=== PATIENT | male | born 1935 | race Caucasian/White ===

== ENCOUNTER 2020-02-26 06:03 | Observation (INO) ==
--- NOTE | 2020-02-10 16:01 | PAT Medication Instructions ---
Medication Instructions Date of Service February 10, 2020 Home Medications cholecalciferol (vitamin D3) [Vitamin D3] 50 mcg PO QAM tramadol 100 mg PO TID vit C,J-Wz-rlxii-lutein-zeaxan [PreserVision AREDS-2] 1 tab PO BID STOP taking 2 weeks before surgery vit C,P-Jg-hmybp-lutein-zeaxan [PreserVision AREDS-2] 1 tab PO BID DO NOT take the morning of surgery cholecalciferol (vitamin D3) [Vitamin D3] 50 mcg PO QAM Take morning of surgery With a small sip of water, OTHERWISE NOTHING TO EAT OR DRINK AFTER MIDNIGHT: tramadol 100 mg PO TID (okay to take up to 4 hours prior to surgery if needed) Take evening before surgery tramadol 100 mg PO TID Other Notes If you have any questions please call us at [phone] or [phone] or [phone] or [phone]
--- NOTE | 2020-02-13 13:33 | Anesthesiology Consultation ---
Date of Service February 13, 2020 Assessment & Plan (1) Encounter for pre-operative examination: Per assessment on 02/10: Travel screen negative. No known COVID-19 positive contacts or current COVID-19 related symptoms. Surgeon arranging preop COVID testing. Awaiting results. Chart Review Chart Review: Acceptable Risk for Surgery (pending surgeon-ordered PCP clearance) and Patient seen in Pre Admission Testing Teaching & Discussion Pre-Anesthesia Teaching/Discussion Notes: Instructed NPO after midnight before surgery,except medications with 15 cc of water. Medication instructions provided according to the PAT guidelines. History Surgery Operation Date: 02/26/20 12:20 Proposed Procedures p Left Total Knee Arthroplasty - Jamaal Leonard MD Height/Weight Height: 5 ft 10 in Weight: 88.3 kg Allergies Allergy/AdvReac Type Severity Reaction Status Date / Time naproxen [From Naprosyn] Allergy Severe Anaphylaxis Verified 02/11/20 13:19 diphenhydramine AdvReac Intermediate Urinary Verified 02/11/20 13:19 [From Benadryl] retention Medications Home Medications Medication Instructions Recorded Confirmed Last Taken PreserVision AREDS-2 1 tab PO BID 01/29/20 02/11/20 02/11/20 06:00 cholecalciferol (vitamin D3) 50 mcg PO QAM 01/29/20 02/11/20 02/11/20 06:00 [Vitamin D3] tramadol 100 mg PO TID 01/29/20 02/11/20 02/11/20 11:00 Past Medical History Medical History Lumbar herniated disc Macular degeneration Osteoarthritis Spinal stenosis Exercise / Class Metabolic Activity II 4-5 Yardwork/Stairs/Walk up hill Past Family History Family History Other No significant family history Past Surgical History Surgical History History of cholecystectomy History of colonoscopy History of herniorrhaphy LEFT INGUINAL History of tonsillectomy History of total knee replacement RT Past Anesthesia History No Hx of Anesthesia Complications and No Family Hx of Anesthesia Complications History of PONV No Hx of PONV and No Hx of Motion Sickness Social History Smoking Status: Never smoker Do You Dip or Chew Tobacco: No Hx Alcohol Use: Yes Alcohol type: beer and wine alcohol intake frequency: holidays/special occasions only substance use type: does not use Review of Systems Patient denies chest pain, shortness of breath, dyspnea on exertion, fever, chills, cough, wheezing, palpitations. Physical Exam Vital Signs VITALS BP 130/79 P 72 TEMP 98.4 SP02 97%RA RESP 16 PHYSICAL Full neck and c-spine range of motion. Full TMJ range of motion. TMD 3 finger breaths Mallampati Score 3 Dentition: intact Lungs: clear throughout to auscultation Cardiac: regular rate and rhythm, no murmurs noted Spine: normal Carotid arteries: negative bruit Extremities: no edema Testing Laboratory Results 02/13/20 13:50 02/13/20 13:50 PT 11.0 Seconds (9.0-12.0) 02/13/20 13:50 INR 1.0 (0.9-1.1) 02/13/20 13:50 Hemoglobin A1c 5.3 % (4.5-5.6) 02/13/20 13:50 Urine Color Yellow 02/13/20 Unknown Urine Appearance Clear (Clear) 02/13/20 Unknown Urine pH 5.0 (4.5-7.5) 02/13/20 Unknown Ur Specific [place] 1.028 (1.000-1.030) 02/13/20 Unknown Urine Protein Negative (Negative) 02/13/20 Unknown Urine Glucose (UA) Negative (Negative) 02/13/20 Unknown Urine Ketones Trace (Negative) H 02/13/20 Unknown Urine Nitrite Negative (Negative) 02/13/20 Unknown Ur Leukocyte Esterase Negative (Negative) 02/13/20 Unknown Blood Type A Positive 02/13/20 13:50 Antibody Screen NEGATIVE 02/13/20 13:50 02/13/20 Unknown Urine Culture - Final Urine,Clean Catch Pseudomonas aeruginosa Surgeon's office made aware of abnormal UA* Electrocardiogram Date: 02/13/20 Findings: + NSR @ (34)
--- NOTE | 2020-02-13 14:15 | Electrocardiogram Report ---
Test Reason : Blood Pressure : / mmHG Vent. Rate : 067 BPM Atrial Rate : 067 BPM P-R Int : 152 ms QRS Dur : 088 ms QT Int : 390 ms P-R-T Axes : 045 057 048 degrees QTc Int : 412 ms Normal sinus rhythm Normal ECG No previous ECGs available Confirmed by Juan Francisco Mcneill ([id number]) on 02/13/2020 2:15:32 PM Referred By: Jamaal Leonard Confirmed By:Juan Francisco Mcneill
[2020-02-13 14:33] LABS: Appearance Urine Clear (Clear); Bilirubin Urine Negative (Negative); Blood Urine Negative (Negative); Color Urine Yellow; Glucose Urine UA Negative (Negative); Ketones Urine Trace (Negative); Leukocyte Esterase Urine Negative (Negative); Nitrite Urine Negative (Negative); Protein Urine Negative (Negative); Specific Gravity Urine 1.028 (1.000-1.030); Urobilinogen Urine Negative (Negative)
[2020-02-13 14:36] LABS: BUN Creatinine Ratio 24.8 (10-20); Calcium 8.3 mg/dl (8.5-10.1); Creatinine Clr Calc Pharmacy 63.4 ml/min; Est GFR (African American) 82.7; Est GFR (Non-African American) 71.4; Potassium 3.9 mmol/L (3.5-5.1)
[2020-02-13 14:41] LABS: Basophils # (auto) 0.04 K/uL (0-0.2); Basophils % (auto) 0.5 %; Eosinophils # (auto) 0.06 K/uL (0-0.5); Eosinophils % (auto) 0.7 %; Hematocrit (blood only) 43.4 % (42-52); Hemoglobin 14.3 g/dL (14.0-18.0); Immature Granulocytes # (auto) 0.02 K/uL (0.00-0.02); Immature Granulocytes % (auto) 0.2 %; Lymphocytes # (auto) 1.43 K/uL (1.2-3.4); Lymphocytes % (auto) 17.8 %; Mean Corpuscular Hemoglobin 31.8 pg (25-34); Mean Corpuscular Hgb Conc 32.9 g/dL (32-36); Mean Corpuscular Volume 96.7 fL (80-100); Mean Platelet Volume 10.8 fL (7.4-10.4); Monocytes # (auto) 0.56 K/uL (0.11-0.59); Neutrophils # (auto) 5.94 K/uL (1.4-6.5); Neutrophils % (auto) 73.8 %; Platelet Count 269 K/uL (130-400); RDW Coefficient of Variation 12.4 % (11.5-14.5); RDW Standard Deviation 43.5 fL (36.4-46.3); Red Blood Count 4.49 M/uL (4.7-6.1); White Blood Count 8.05 K/uL (4.8-10.8)
--- NOTE | 2020-02-13 16:46 | History & Physical Report ---
Date of Service February 13, 2020 Assessment & Plan (1) Osteoarthritis of left knee: PRE-OP Diagnosis: Left knee osteoarthritis Planned Procedure: Left total knee arthroplasty Plan: Patient is scheduled to undergo this procedure with Dr. Jamaal Leonard the [facility] on February 26, 2020. Risks and complications of the procedure such as: Infection, bleeding, pain, scarring, nerve blood vessel damage, weakness, wound problems, stiffness, incomplete relief of symptoms, hardware failure, hardware loosening, wear, fracture, tendon or ligament injury, blood clots, embolism, heart attack, stroke and were explained to the patient has visit today by Dr. Leonard. Informed consent form the procedure was obtained. Patient also understands risks of proceeding with surgical intervention during the COVID-19 pandemic. Currently he is asymptomatic and understands he will be tested prior to surgery. Patient was provided with the order for the Covid test and advised to have it done at least 7 days prior to his procedure at the laboratory upstairs between 8 AM and noon. Patient had preanesthesia clearance appointment at the hospital earlier today, and during that appointment he obtained an EKG, CBC with differential, complete metabolic panel, PT/INR, urinalysis, urine culture, nasal culture for MRSA, hemoglobin A1c and a blood type and screen. Patient states that he has appointment with his primary care provider Dr. Grewal next week. Patient states that he has a walker he will bring with him on the day of the procedure. During today's visit we discussed discharge planning, we reviewed the total knee arthroplasty packet, patient states he will most likely have in-home therapy with home health. We also discussed the use of antibiotics for dental procedures following joint replacement surgery. Patient states he already understands this because he has right knee replaced in the past. I also provided him with information about lectures offered by [facility] via [employer] in regards to joint placement surgery. I provided the patient with paperwork to obtain a handicap placard for his vehicle, however he does not know if he will obtain it because he states that him and his have not been traveling much lately. Patient is scheduled for 2-week postoperative follow-up visit with myself on March 12 at 2:30 in the afternoon. Advised him that he will be discharged from the hospital most likely day 1 postoperatively with prescriptions for an opioid analgesic. Due to his anaphylactic-like reaction to naproxen will not provide a prescription for an anti-inflammatory agents. Patient states he will use Anacin for postoperative pain control and will supplement with extra strength Tylenol. Advised him that he will be on a baby aspirin twice daily for 30 days postoperatively for blood clot prevention and will also need to wear NEHA stockings for 2 weeks postoperatively. Patient and his verbalized understanding of all information provided during today's visit. They thanked us for the care that they have received. If they have questions or concerns that should arise prior to the surgery date, they will contact clinic. History of Present Illness Chief Complaint: Left knee osteoarthritis Primary Care Provider: Dave Grewal MD History of Present Illness (including history relevant to procedure): This 84-year-old male presents the clinic today for his preoperative history and physical. Patient has a longstanding history of left knee pain for harshil roximately the past 5. He states that over the past several months the pain is increased and caused him to use an ambulatory aid to walk. He said he used to be able to walk 3-4 times a week for at least a mile without any problems. Since August, however, he has not been able to do this. Anytime he puts weight down on the leg, it hurts. It is better when he rests it. Patient currently resides at [facility] with his , and recently moved there 1 month ago from the [facility]. Past Medical History: Problems: Osteoarthritis of left knee Pre-op exam Left sacral radiculopathy BPH Procedure History Procedure Procedure Date Comments Right total knee arthroplasty Cholecystectomy Left inguinal hernia repair Tonsillectomy Allergies and Sensitivities: Naprosyn(Anaphylaxis) Benadryl(Urinary retention) Family history: Noncontributory Social history: Patient states that he consumes approximately 3 alcoholic beverages per year. He denies tobacco or illicit drug use Current Home Meds: (Last Updated 02/12 14:23) cholecalciferol traMADol Weights: Last Updated 02/13/20 14:23 Initial Wt: 02/12 88.7 kg 195 lb Allergies Allergy/AdvReac Type Severity Reaction Status Date / Time naproxen [From Naprosyn] Allergy Severe Anaphylaxis Verified 02/11/20 13:19 diphenhydramine AdvReac Intermediate Urinary Verified 02/11/20 13:19 [From Benadryl] retention Home Medications Home Medications Medication Instructions Recorded Confirmed Type PreserVision AREDS-2 1 tab PO BID 01/29/20 02/11/20 History cholecalciferol (vitamin D3) 50 mcg PO QAM 01/29/20 02/11/20 History [Vitamin D3] tramadol 100 mg PO TID 01/29/20 02/11/20 History Past Med/Surg History Medical History Lumbar herniated disc Macular degeneration Osteoarthritis Spinal stenosis Surgical History History of cholecystectomy History of colonoscopy History of herniorrhaphy LEFT INGUINAL History of tonsillectomy History of total knee replacement RT Family History Other No significant family history Social History Smoking Status: Never smoker Second Hand Exposure: Yes ( A CHILD); Do You Dip or Chew Tobacco: No; Tobacco Cessation Education Requested by Patient: No Hx Alcohol Use: Yes Alcohol type: beer and wine Preferred Language: Hungarian Cook Candy Required: No Beliefs That Will Affect Care: None Current Living Situation: Spouse Current Living Situation Comment: [facility] Feels Safe at Home: Yes Safety Concerns: Feels Safe At This Time Assistive Devices: Cane and Glasses Review of Systems All systems reviewed & are unremarkable except as noted in Subjective Physical Exam Physical Exam: Physical Exam: (relevant to the procedure, including heart and lung evaluation) General: Alert and oriented x3 with proper grooming and hygiene Eyes: Pupils are equal and reactive to light with accommodation. Extraocular meds are intact Throat: Deferred due to COVID-19 precautions Cardiac: Regular rate and rhythm no murmurs or gallops appreciated Lungs: Clear auscultation throughout with no wheezing, rales or rhonchi Abdomen: Mildly obese, nondistended, nontender with normoactive bowel sounds Extremities: Left knee exam reveals the patient to be tender to palpation along the medial joint line. No lateral joint line tenderness. Mild peripatellar tenderness. Range of motion is from 0 to 120 degrees. Distally neurovascularly intact. Neuro: Cranial nerves II through XII are intact no motor or sensory deficit Skin: Normal appearance no open skin areas or discharge Results & Data ([facility]) Laboratory Results 02/13/20 02/13/20 02/13/20 Range/Units Unknown Unknown 13:50 WBC (4.8-10.8) K/uL RBC (4.7-6.1) M/uL Hgb (14.0-18.0) g/dL Hct (42-52) % MCV (80-100) fL MCH (25-34) pg MCHC (32-36) g/dL RDW Std Deviation (36.4-46.3) fL RDW Coeff of Shaq (11.5-14.5) % Plt Count (130-400) K/uL MPV (7.4-10.4) fL Immature Gran % (Auto) % Neut % (Auto) % Lymph % (Auto) % [place] % (Auto) % Eos % (Auto) % Baso % (Auto) % Neut # (Auto) (1.4-6.5) K/uL Lymph # (Auto) (1.2-3.4) K/uL Baldwin # (Auto) (0.11-0.59) K/uL Eos # (Auto) (0-0.5) K/uL Baso # (Auto) (0-0.2) K/uL Immature Gran # (Auto) (0.00-0.02) K/uL PT (9.0-12.0) Seconds INR (0.9-1.1) Sodium (136-145) mmol/L Potassium (3.5-5.1) mmol/L Chloride (98-107) mmol/L Carbon Dioxide (21-32) mmol/L Anion Gap (3-11) BUN (7-18) mg/dl Creatinine (0.6-1.4) mg/dl Est Cr Clr Drug Dosing ml/min Est GFR ( Amer) Est GFR (Non-Af Amer) BUN/Creatinine Ratio (10-20) Glucose (70-99) mg/dl Estimat Average Glucose Pending Hemoglobin A1c Pending Calcium (8.5-10.1) mg/dl Urine Color Yellow Urine Appearance Clear (Clear) Urine pH 5.0 (4.5-7.5) Ur Specific [place] 1.028 (1.000-1.030) Urine Protein Negative (Negative) Urine Glucose (UA) Negative (Negative) Urine Ketones Trace H (Negative) Urine Blood Negative (Negative) Urine Nitrite Negative (Negative) Urine Bilirubin Negative (Negative) Urine Urobilinogen Negative (Negative) Ur Leukocyte Esterase Negative (Negative) Nasal Screen MRSA (PCR) Negative (Negative) Blood Type Antibody Screen 02/13/20 02/13/20 02/13/20 Range/Units 13:50 13:50 13:50 WBC 8.05 (4.8-10.8) K/uL RBC 4.49 L (4.7-6.1) M/uL Hgb 14.3 (14.0-18.0) g/dL Hct 43.4 (42-52) % MCV 96.7 (80-100) fL MCH 31.8 (25-34) pg MCHC 32.9 (32-36) g/dL RDW Std Deviation 43.5 (36.4-46.3) fL RDW Coeff of Shaq 12.4 (11.5-14.5) % Plt Count 269 (130-400) K/uL MPV 10.8 H (7.4-10.4) fL Immature Gran % (Auto) 0.2 % Neut % (Auto) 73.8 % Lymph % (Auto) 17.8 % Baldwin % (Auto) 7.0 % Eos % (Auto) 0.7 % Baso % (Auto) 0.5 % Neut # (Auto) 5.94 (1.4-6.5) K/uL Lymph # (Auto) 1.43 (1.2-3.4) K/uL Baldwin # (Auto) 0.56 (0.11-0.59) K/uL Eos # (Auto) 0.06 (0-0.5) K/uL Baso # (Auto) 0.04 (0-0.2) K/uL Immature Gran # (Auto) 0.02 (0.00-0.02) K/uL PT 11.0 (9.0-12.0) Seconds INR 1.0 (0.9-1.1) Sodium 142 (136-145) mmol/L Potassium 3.9 (3.5-5.1) mmol/L Chloride 110 H (98-107) mmol/L Carbon Dioxide 27 (21-32) mmol/L Anion Gap 5.0 (3-11) BUN 24 H (7-18) mg/dl Creatinine 0.97 (0.6-1.4) mg/dl Est Cr Clr Drug Dosing 63.4 ml/min Est GFR ( Amer) 82.7 Est GFR (Non-Af Amer) 71.4 BUN/Creatinine Ratio 24.8 H (10-20) Glucose 132 H (70-99) mg/dl Estimat Average Glucose Hemoglobin A1c Calcium 8.3 L (8.5-10.1) mg/dl Urine Color Urine Appearance (Clear) Urine pH (4.5-7.5) Ur Specific [place] (1.000-1.030) Urine Protein (Negative) Urine Glucose (UA) (Negative) Urine Ketones (Negative) Urine Blood (Negative) Urine Nitrite (Negative) Urine Bilirubin (Negative) Urine Urobilinogen (Negative) Ur Leukocyte Esterase (Negative) Nasal Screen MRSA (PCR) (Negative) Blood Type Antibody Screen 02/13/20 Range/Units 13:50 WBC (4.8-10.8) K/uL RBC (4.7-6.1) M/uL Hgb (14.0-18.0) g/dL Hct (42-52) % MCV (80-100) fL MCH (25-34) pg MCHC (32-36) g/dL RDW Std Deviation (36.4-46.3) fL RDW Coeff of Shaq (11.5-14.5) % Plt Count (130-400) K/uL MPV (7.4-10.4) fL Immature Gran % (Auto) % Neut % (Auto) % Lymph % (Auto) % Baldwin % (Auto) % Eos % (Auto) % Baso % (Auto) % Neut # (Auto) (1.4-6.5) K/uL Lymph # (Auto) (1.2-3.4) K/uL [place] # (Auto) (0.11-0.59) K/uL Eos # (Auto) (0-0.5) K/uL Baso # (Auto) (0-0.2) K/uL Immature Gran # (Auto) (0.00-0.02) K/uL PT (9.0-12.0) Seconds INR (0.9-1.1) Sodium (136-145) mmol/L Potassium (3.5-5.1) mmol/L Chloride (98-107) mmol/L Carbon Dioxide (21-32) mmol/L Anion Gap (3-11) BUN (7-18) mg/dl Creatinine (0.6-1.4) mg/dl Est Cr Clr Drug Dosing ml/min Est GFR ( Amer) Est GFR (Non-Af Amer) BUN/Creatinine Ratio (10-20) Glucose (70-99) mg/dl Estimat Average Glucose Hemoglobin A1c Calcium (8.5-10.1) mg/dl Urine Color Urine Appearance (Clear) Urine pH (4.5-7.5) Ur Specific [place] (1.000-1.030) Urine Protein (Negative) Urine Glucose (UA) (Negative) Urine Ketones (Negative) Urine Blood (Negative) Urine Nitrite (Negative) Urine Bilirubin (Negative) Urine Urobilinogen (Negative) Ur Leukocyte Esterase (Negative) Nasal Screen MRSA (PCR) (Negative) Blood Type Pending Antibody Screen Pending Diagnostic Findings Studies relevant to procedure: X-rays done e include a standing long leg alignment film as well as three-views of the left knee. These demonstrate the patient to be in varus alignment on the left and valgus alignment on the right where he has had a total knee arthroplasty done. He has [id number] arthritis on the left medial joint space. No fractures are visualized.
[2020-02-14 06:39] LABS: Estimated Average Glucose 105 mg/dl; Hemoglobin A1C 5.3 % (4.5-5.6)
[~2020-02-26 06:03] MED LIST: ACETAMINOPHEN 500 MG TAB PO SCH; CeleBREX 200 MG CAP PO SCH; FAMOTIDINE 20 MG TAB PO SCH; LR 60ML/HR IV SCH; ROPIVACAINE 0.5% HCL/PF 150 MG, BUPIVACAINE 0.5% MPF 30 ML, EPINEPHrine 0.15 MG, dexAME... INFIL SCH; TRANEXAMIC ACID 1,000 MG **IV Intra-op IV SCH; TRANEXAMIC ACID 1,000 MG **IV Pre-op IV SCH; ceFAZolin 2000MG 2,000 MG/15 ML SYR IV SCH; dexAMETHasone 4 MG TAB PO SCH; traMADol HCL 50 MG TABLET PO SCH
[2020-02-26] MEDS ORDERED: BUPIVACAINE 0.5 % 5 MG/1 ML PF 10ML VIAL ONE (06:28)
[2020-02-26] MEDS: LR 500ML BOLUS, THEN 15ML/HR IV SCH ×2 (06:40)
[2020-02-26] MEDS ORDERED: fentaNYL citrate 100 MCG/2 ML VIAL ONE (07:33)
[2020-02-26] MEDS ORDERED: MIDAZOLAM HCL 1 MG/ML 2ML VIAL ONE (07:33)
[2020-02-26] MEDS ORDERED: LIDOCAINE HCL 2% 2 ML VIAL/AMP(20MG/ML) INFIL ONE (07:33)
[2020-02-26] MEDS ORDERED: PROPOFOL IV EMULSION 10 MG/ML 20 ML VIAL IV ONE ×6 (07:33→07:34)
[2020-02-26] MEDS ORDERED: ONDANSETRON INJ 2 MG/ML 2 ML VIAL IV PRN ×2 (07:44→12:30)
[2020-02-26] MEDS ORDERED: ATROPINE SULFATE 0.1 MG/ML 10ML SYR IV PRN (07:44)
[2020-02-26] MEDS ORDERED: ePHEDrine sulfate 50 MG/ML AMP IV PRN (07:44)
[2020-02-26] MEDS ORDERED: fentaNYL citrate 100 MCG/2 ML VIAL IV PRN (07:44)
[2020-02-26] MEDS ORDERED: ORTHO JOINT ANESTHETIC ONE (07:56)
--- NOTE | 2020-02-26 08:08 | History & Physical Bridge Note ---
Date of Service February 26, 2020 History & Physical Bridge Note I have examined the patient, reviewed the History & Physical and in the interval since the performance of the History & Physical I have noted the following changes of clinical significance: no changes noted
--- NOTE | 2020-02-26 10:15 | Operative Report ---
Post Operative Report Pre & Post Diagnosis Operation Date: 02/26/20 08:15 Pre-Op Diagnosis: LEFT KNEE ARTHRITIS M17.12 Post-Op Diagnosis: LEFT KNEE ARTHRITIS M17.12 I identified the patient and participated in the time-out.: Yes Procedure Operation Date: 02/26/20 08:15 Actual Procedures p Left Total Knee Arthroplasty(Left) - Jamaal Leonard MD Surgeon Jamaal Leonard MD Sap Pp Consultant BISI Rosen PA-C Estimated Blood Loss 100 Findings Consistent with Post-Op Diagnosis Specimens Bone and soft tissue, left knee Anesthesia Type Spinal MAC Complications none Disposition Accompanied Patient To Recovery: No Disposition: Recovery Room Indications 84-year-old male with left knee pain refractory to conservative management. X- rays demonstrate end-stage osteoarthritis. I had a long discussion with him ab out the risks and benefits of surgery alternatives to surgery and expected outcomes. After reviewing all these elected to proceed with surgery. All questions were answered. Informed consent was signed. Description of Procedure Patient was identified in the preoperative holding area where the surgical site, left knee, was marked. Patient was brought back to the operating room, placed on the operating room table, and IV sedation was administered. All bony prominences were padded. Perioperative antibiotics and tranexamic acid were administered. Exam under anesthesia was performed. Range of motion was 8 - 135 degrees. Stable to varus and valgus at 0 and 30 degrees. The surgical site was prepped and draped in the normal sterile fashion. Prior to incision a multidisciplinary timeout was called. All in the room were in agreement. We began by exsanguinating the limb with an Esmarch bandage. Tourniquet was inflated to 250 mmHg. A 14 cm long incision was made over the anterior aspect of the knee. I dissected through the subcutaneous tissues to the level of the fascia. Full-thickness flaps are raised above the fascia. A median parapatellar arthrotomy was made. Half the fat pad was excised. A medial release was performed with Bovie electrocautery on the proximal tibia. Synovitis in the suprapatellar pouch was removed. The patella was then everted and held with 2 towel clips. The thickness of the patella was measured at 26 mm. Patellar resection was performed. Caliper showed the patella thickness now to be 16 mm. A size 38 trial was placed and had a great fit. The 3 drill holes were placed then the trial button was placed. The patellar thickness was now 26 mm which I was very happy with. The patellar trial was then removed, the patella was everted and the knee was flexed up. Osteophytes were removed from the femoral condyles and intercondylar notch. The ACL and PCL were excised. Intramedullary drill guide was drilled into the femur. Distal femoral cutting guide was placed set at 5 degrees of valgus to resect 11 mm off the distal femur. Distal femoral resection was made without difficulty. The tibia was then exposed. The lateral meniscus was sharply excised. The tibial cutting jig was positioned to resect 10 mm off the less involved compartment. The jig was then pinned in position and the tibial cut was made. We then brought the knee into full extension. Lamina spreaders were placed. The medial meniscus was excised. The extension block was then placed for 10 mm thickness poly. This gave us full extension and excellent stability to varus and valgus. Next the knee was flexed up and the femoral sizing guide was placed. The patient sized to a size 4 femur. The 3 degree external rotation jig was used to create 2 holes in the distal femur. The jig was removed and the holes were compared to Whitesides axis and the epicondylar axis. We were happy with the rotation, and therefore placed a size three 4-in-1 cutting jig and pinned this into position. Our 4 cuts were made. The cutting jig was removed. The flexion block was then placed with the knee held at 90 degrees. There was excellent stability to varus and valgus at 90 degrees with no gapping medially or laterally. Next the box cutting jig was placed on the distal femur. The box cut was made and the femoral trial was impacted into position. The tibia was sized to a 4 for an all-poly, fixed bearing component. The tibial tray was positioned in external rotation on the cut tibial surface and the knee was brought through a full range of motion. We then pinned the tibial tray into position and used the intramedullary drill followed by the keel punch. The trial polyethylene was then placed and the knee was brought through a full range of motion. I was very happy with the stability through a full range of motion, and the patellar tracking was excellent. Next the trial components were removed. I then injected the posterior capsule and periosteum with the periarticular injection cocktail. The bone cuts were then irrigated and dried while the cement was mixed on the back table. The femoral component was cemented on first. Excess cement was removed. A lap sponge was placed over the femoral component for protection, then the tibia was subluxated anteriorly. The tibial component was then cemented in place. Again excess cement was removed. The tibial component was then placed and the knee was brought into full extension and held there until the cement cured. The patella was cemented and clamped. Dilute Betadine solution was then allowed to irrigate the knee while the cement cured. Once the cement was fully cured, the tourniquet was let down and meticulous hemostasis was ensured. The wound was irrigated out with copious amounts normal saline. The knee was brought through a full range of motion and we are very happy with the patella tracking and the stability. We then began to close. Interrupted 0 Vicryl suture was used to repair the patellar retinaculum in [id number]-je-duqen fashion. The quadriceps and patellar tendons were run with #1 Ethibond. The deep dermal layer was closed with interrupted 2-0 Vicryl. Zipline was used for the skin. A compressive dressing was placed. Patient's sedation was lifted and was transferred to recovery room in stable condition. Summary of implants: Depuy Sigma Posterior Stabilized Cemented Femur, size 4 Tibial all-polyethylene component, 10 mm thickness, size 4 Oval come patella, size 38 2 batches of simplex bone cement Postoperative course: Patient will be admitted to the floor for pain control and monitoring. Weightbearing as tolerated with no knee range of motion for 48 hours. Aspirin for DVT prophylaxis. I attest to the content of the Intraoperative Record and any orders documented therein. Any exceptions are noted below.
--- NOTE | 2020-02-26 10:18 | Operative Report ---
Post Operative Report Pre & Post Diagnosis Operation Date: 02/26/20 08:15 Pre-Op Diagnosis: LEFT KNEE ARTHRITIS M17.12 Post-Op Diagnosis: LEFT KNEE ARTHRITIS M17.12 I identified the patient and participated in the time-out.: Yes Procedure Operation Date: 02/26/20 08:15 Actual Procedures p Left Total Knee Arthroplasty(Left) - Jamaal Leonard MD Surgeon Jamaal Leonard MD Oncology Rn BISI Rosen PA-C Estimated Blood Loss 100 Findings Consistent with Post-Op Diagnosis Specimens none Complications none Disposition Accompanied Patient To Recovery: Yes Disposition: Recovery Room Description of Procedure I was present during the entire case assisting with positioning, prepping, draping, retraction, wound closure and dressing application. No Fellow Available. Please see Dr. Leonard procedure note for specifics of the case. I attest to the content of the Intraoperative Record and any orders documented therein. Any exceptions are noted below.
--- NOTE | 2020-02-26 10:46 | XRay Report ---
XR knee LT 1 or 2V routine CLINICAL HISTORY: Postoperative evaluation. COMPARISON: Left knee radiograph January 13, 2020. FINDINGS: Alignment of the total left knee arthroplasty is noted. Note is made of an all polyethylen e tibial component. No periprosthetic fracture is noted. There are no unexpected radiopaque foreign b odies. IMPRESSION: Expected findings following total left knee arthroplasty. ACT 112: Negative or not required by law. Electronically signed by: Speedy Charles M.D. 02/26/2020 10:45 AM
--- NOTE | 2020-02-26 10:59 | Anesthesiology Progress Note ---
Date of Service February 26, 2020 Anesthesia Post Procedure Vital Signs Vital Signs: Temp Pulse Pulse Resp BP Pulse Ox 02/26/20 10:50 97.5 F L 64 14 94/62 L 94 02/26/20 10:40 65 12 109/67 94 02/26/20 10:30 65 12 111/66 97 02/26/20 10:20 64 18 106/64 97 02/26/20 10:15 98.6 F 64 16 104/65 97 02/26/20 06:36 99.1 F 88 20 142/82 H 97 Transfer of Care Handoff Completed per policy Notes Mental Status: alert / awake / arousable and participated in evaluation Patient Amnestic to Procedure: Yes Nausea / Vomiting: adequately controlled Pain: adequately controlled Airway Patency, RR, SpO2: stable & adequate BP & HR: stable & adequate Hydration State: stable & adequate Neuraxial Anesthesia: was administered and sensory block is resolving Anesthetic Complications: no major complications apparent and Pt Satisfied with anesthetic care
[2020-02-26] MEDS ORDERED: PNEUMOCOCCAL POLYSACCHARIDES 25 MCG/0.5 ML VIAL/SYR IM ONE (12:23)
[2020-02-26] MEDS ORDERED: PNEUMOCOCCAL ADMINISTRATION CHARGE ONE (12:23)
[2020-02-26] MEDS ORDERED: traMADol HCL 50 MG TABLET PO PRN (12:30)
[2020-02-26] MEDS ORDERED: HYDROmorphone INJ 0.5 MG/0.5 ML SYR IV PRN (12:30)
[2020-02-26] MEDS ORDERED: MAGNESIUM HYDROXIDE SUSP 30 ML UDC PO PRN (12:30)
[2020-02-26] MEDS ORDERED: NALOXONE HCL 0.4 MG/1 ML VIAL/CARP IV PRN (12:30)
[2020-02-26] MEDS ORDERED: TAMSULOSIN HCL 0.4 MG CAP PO PRN (12:30)
[2020-02-26] MEDS ORDERED: bisacodyL 10 MG SUPP PR PRN (12:30)
[2020-02-26] MEDS ORDERED: ALUMINUM/MAGNESIUM SUSP 30 ML UDC PO PRN (12:30)
[2020-02-26] MEDS ORDERED: METOCLOPRAMIDE HCL INJ 5 MG/ML 2 ML VIAL IV PRN (12:30)
[2020-02-26] MEDS: ACETAMINOPHEN 500 MG TAB PO SCH ×2 (13:50→21:29)
[2020-02-26] MEDS: SODIUM CHLORIDE 0.9% 1000ML 1,000 ML IV SCH ×2 (13:50→21:30)
[2020-02-26] MEDS: traMADol HCL 50 MG TABLET PO SCH ×2 (13:50→21:30)
[2020-02-26] MEDS: Scopolamine CHECK PATCH PLACEMENT SCH ×2 (15:48→23:45)
[2020-02-26] MEDS: ceFAZolin 2000MG 2,000 MG/15 ML SYR IV SCH ×2 (15:48→23:44)
[2020-02-26] MEDS ORDERED: TRANEXAMIC ACID / 0.7% NACL 1,000 MG/100 ML BAG IV SCH (16:30)
[2020-02-26] MEDS ORDERED: SENNA 8.6 MG TAB PO SCH (21:00)
[2020-02-26] MEDS: DOCUSATE SODIUM 100 MG CAP PO SCH (21:29)
[2020-02-26] MEDS: ASPIRIN 81 MG ECTAB PO SCH (21:29)
[2020-02-27] MEDS: ACETAMINOPHEN 500 MG TAB PO SCH (04:52)
[2020-02-27 06:34] LABS: Hemoglobin 12.8 g/dL (14.0-18.0); Mean Corpuscular Hemoglobin 31.5 pg (25-34); Mean Corpuscular Hgb Conc 33.7 g/dL (32-36); Mean Corpuscular Volume 93.6 fL (80-100); Mean Platelet Volume 10.3 fL (7.4-10.4); Platelet Count 227 K/uL (130-400); RDW Coefficient of Variation 12.1 % (11.5-14.5); Red Blood Count 4.06 M/uL (4.7-6.1); White Blood Count 13.11 K/uL (4.8-10.8)
[2020-02-27 07:20] LABS: BUN Creatinine Ratio 27.6 (10-20); Calcium 8.1 mg/dl (8.5-10.1); Creatinine Clr Calc Pharmacy 76.9 ml/min; Est GFR (African American) 94.6; Est GFR (Non-African American) 81.6
[2020-02-27] MEDS: Scopolamine CHECK PATCH PLACEMENT SCH (07:24)
[2020-02-27] MEDS: ASPIRIN 81 MG ECTAB PO SCH (07:26)
[2020-02-27] MEDS: DOCUSATE SODIUM 100 MG CAP PO SCH (07:27)
[2020-02-27] MEDS: traMADol HCL 50 MG TABLET PO SCH (07:30)
[2020-02-27] MEDS ORDERED: dexAMETHasone 4 MG TAB PO SCH (08:00)
[2020-02-27] MEDS ORDERED: CHOLECALCIFEROL 1,000 UNITS 25 MCG TAB PO SCH (09:00)
[2020-02-27] MEDS ORDERED: MULTIVITAMIN TAB PO SCH (09:00)
[2020-02-27] MEDS ORDERED: CEROVITE ADV FORMULA TAB PO SCH (09:00)
--- NOTE | 2020-02-27 11:26 | Orthopedic Progress Note ---
Date of Service February 27, 2020 Assessment & Plan (1) S/P total knee replacement using cement: PT/OT Weight-bear as tolerated on left lower extremity with walker for assistance in knee immobilizer for first 48 hours postoperatively Pain control with p.o. medications Plan on discharge home today with in-home health services at [facility] Ice with EZ WRAP DVT prophylaxis with aspirin and NEHA stockings Follow-up with [facility] orthopedics in 2 weeks as previously scheduled With questions: Call [phone] Admission and Anticipated Discharge Date Admission Date: February 26, 2020 Subjective This 84-year-old male is day 1 status post left total knee arthroplasty. He states he is doing very well. He denies any pain at present. He states that he has completed physical and occupational therapy without difficulty. He states he is ready to be discharged back to [facility] where he lives with his . He states that his daughter is also coming into town to help for the next few weeks. Patient states that he will continue his PT and OT at [facility]. Currently he denies chest pain, shortness of breath, fever, chills, sweats, nausea, vomiting, diarrhea, lethargy or fatigue. Review of Systems Review of Systems: All systems reviewed & are unremarkable except as noted in Subjective Physical Exam Physical Exam: Left knee: Postoperative dressing was removed. Area around the zipper line was lightly cleansed with normal saline solution and patted dry with a sterile 4 x 4. A Silverlon dressing was applied over the incision site. Patient has some mild edema, but no erythema, ecchymosis, warmth or palpable knee deformity. He does experience some numbness to palpation over the distal medial aspect of his leg. He is able to perform a straight leg raise test. He is able to actively extend to 0 degrees and flex to 90 degrees in his knee. There is no clunking with light passive varus and valgus stressing. Patient's calf is soft and supple nontender to palpation. He is able to actively dorsi and plantarflex his foot without difficulty. His peripheral pulses are easily palpable and 2+. Capillary refill is less than 2 seconds. Patient is neurovascular intact in the left lower extremity. Results & Data ([facility]) Vital Signs (Past 12 Hours) Vital Signs Temp Pulse Resp BP BP Pulse Ox 02/27/20 07:00 36.7 C 65 16 129/80 98 11/06/20 03:46 36.7 C 69 16 114/64 93 02/27/20 00:08 36.7 C 67 15 106/61 94 Laboratory Results 02/27/20 02/27/20 Range/Units 06:21 06:21 WBC 13.11 H (4.8-10.8) K/uL RBC 4.06 L (4.7-6.1) M/uL Hgb 12.8 L (14.0-18.0) g/dL Hct 38.0 L (42-52) % MCV 93.6 (80-100) fL MCH 31.5 (25-34) pg MCHC 33.7 (32-36) g/dL RDW Std Deviation 41.0 (36.4-46.3) fL RDW Coeff of Shaq 12.1 (11.5-14.5) % Plt Count 227 (130-400) K/uL MPV 10.3 (7.4-10.4) fL Sodium 143 (136-145) mmol/L Potassium (3.5-5.1) mmol/L Chloride 113 H (98-107) mmol/L Carbon Dioxide 25 (21-32) mmol/L Anion Gap 5.0 (3-11) BUN 22 H (7-18) mg/dl Creatinine 0.81 (0.6-1.4) mg/dl Est Cr Clr Drug Dosing 76.9 ml/min Est GFR ( Amer) 94.6 Est GFR (Non-Af Amer) 81.6 BUN/Creatinine Ratio 27.6 H (10-20) Glucose 110 H (70-99) mg/dl Calcium 8.1 L (8.5-10.1) mg/dl Specimen Hemolysis Cancelled
--- NOTE | 2020-02-27 11:26 | Discharge Summary ---
Date of Service February 27, 2020 Admission HPI Per Admitting Provider History of Present Illness (including history relevant to procedure): This 84-year-old male presents the clinic today for his preoperative history and physical. Patient has a longstanding history of left knee pain for approximately the past 5. He states that over the past several months the pain is increased and caused him to use an ambulatory aid to walk. He said he used to be able to walk 3-4 times a week for at least a mile without any problems. Since August, however, he has not been able to do this. Anytime he puts weight down on the leg, it hurts. It is better when he rests it. Patient currently resides at [facility] with his , and recently moved there 1 month ago from the [facility]. Past Medical History: Problems: Osteoarthritis of left knee Pre-op exam Left sacral radiculopathy BPH Procedure History Procedure Procedure Date Comments Right total knee arthroplasty Cholecystectomy Left inguinal hernia repair Tonsillectomy Allergies and Sensitivities: Naprosyn(Anaphylaxis) Benadryl(Urinary retention) Family history: Noncontributory Social history: Patient states that he consumes approximately 3 alcoholic beverages per year. He denies tobacco or illicit drug use Current Home Meds: (Last Updated 02/12 14:23) cholecalciferol traMADol Weights: Last Updated 02/13/20 14:23 Initial Wt: 02/12 88.7 kg 195 lb Admission Exam Per Admitting Provider Physical Exam: (relevant to the procedure, including heart and lung evaluation) General: Alert and oriented x3 with proper grooming and hygiene Eyes: Pupils are equal and reactive to light with accommodation. Extraocular meds are intact Throat: Deferred due to COVID-19 precautions Cardiac: Regular rate and rhythm no murmurs or gallops appreciated Lungs: Clear auscultation throughout with no wheezing, rales or rhonchi Abdomen: Mildly obese, nondistended, nontender with normoactive bowel sounds Extremities: Left knee exam reveals the patient to be tender to palpation along the medial joint line. No lateral joint line tenderness. Mild peripatellar tenderness. Range of motion is from 0 to 120 degrees. Distally neurovascularly intact. Neuro: Cranial nerves II through XII are intact no motor or sensory deficit Skin: Normal appearance no open skin areas or discharge Principal Diagnosis Left knee osteoarthritis Discharge Exam Left knee: Postoperative dressing was removed. Area around the zipper line was lightly cleansed with normal saline solution and patted dry with a sterile 4 x 4. A Silverlon dressing was applied over the incision site. Patient has some mild edema, but no erythema, ecchymosis, warmth or palpable knee deformity. He does experience some numbness to palpation over the distal medial aspect of his leg. He is able to perform a straight leg raise test. He is able to actively extend to 0 degrees and flex to 90 degrees in his knee. There is no clunking with light passive varus and valgus stressing. Patient's calf is soft and supple nontender to palpation. He is able to actively dorsi and plantarflex his foot without difficulty. His peripheral pulses are easily palpable and 2+. Capillary refill is less than 2 seconds. Patient is neurovascular intact in the left lower extremity. Discharge Data Allergies Allergy/AdvReac Type Severity Reaction Status Date / Time naproxen [From Naprosyn] Allergy Severe Anaphylaxis Verified 02/26/20 06:26 diphenhydramine AdvReac Intermediate Urinary Verified 02/26/20 06:26 [From Benadryl] retention Consultations 02/26/20 10:18 Consult Case Management - Discharge Planning Routine Procedures Performed Operation Date: 02/26/20 08:15 Actual Procedures p Left Total Knee Arthroplasty(Left) - Jamaal Leonard MD Ordered Studies 02/26/20 05:00 US - OR guided needle placemen Routine Hospital Course (1) S/P total knee replacement using cement: Patient did very well overnight. He states he wished he had undergone a knee replacement a few years ago. Currently he is pain-free and states that he has been ambulating around with his walker and knee immobilizer without difficulty. He is very pleased with the care that he received. He plans on being discharged back to [facility] where he lives in the assisted living area with his . He states that his daughter is coming to stay with him for 2 weeks as well. He states that he will do his PT/OT at [facility]. If he has questions or concerns or should arise prior to his 2-week follow-up, he will contact clinic. PT/OT Weight-bear as tolerated on left lower extremity with walker for assistance in knee immobilizer for first 48 hours postoperatively Pain control with p.o. medications Plan on discharge home today with in-home health services at [facility] with EZ WRAP DVT prophylaxis with aspirin and NEHA stockings Follow-up with [facility] orthopedics in 2 weeks as previously scheduled With questions: Call [phone] Total Time Total Time Spent Total Time Spent (In Minutes): 20 minutes Total Time Includes: Examination of the Patient, Discharge Planning and Medication Reconciliation Discharge Plan Discharge Items Patient Disposition: Home - Home Health Services Reason For Visit: LEFT KNEE ARTHRITIS M17.12 Discharge Diagnosis: Left knee osteoarthritis Activity: As commented below Lifting: None Bathing: Keep incision dry Bathing Comment: May shower tomorrow Sexual Activity: Wait until after follow-up appointment Exercise/Sports: Wait until after follow-up appointment Driving/Machine Use: No driving until cleared by rn orthopedic Weightbearing: Left weightbearing Weightbearing Comment: as tolerated with immobilizer and walker assistance Non-emergency contact: Primary Care Provider Call non-emergency contact if: you have any medication questions, your pain is not controlled, your temperature is above 101.5, your wound has increased drainage and your wound pain has increased Follow-up/Referrals: Dave Grewal MD [Primary Care Provider] - Diet: Regular Addtl Attending Provider Instructions: Post-operative Instructions Dear Patient and Family/Friends, Before you are discharged from the hospital, it is important to know what to expect when you get home after surgery. To that end, we have created this sheet of discharge instructions which covers many commonly asked questions. Make sure you go through this sheet in its entirety with your nurse before you are discharged. Please note that we will go over the specifics of your surgery and recovery when you return for your first post-operative visit. Sincerely, Dr. Leonard Medications: 1. Aspirin 81 mg: take 1 tab twice daily for blood clot prevention for 30 days post operatively. Please purchase. 2. Tramadol 50 mg : take 1-2 tabs by mouth every 4-6 hrs as needed for pain control. An prescription will be sent to your pharmacy. 3. Extra strength Tylenol 500 mg: take 2 tabs every 6 hours for pain control. Please purchase. Pain Expect to be in a fair amount of pain after surgery. Remember, our goal is not to eliminate your pain, but to make it tolerable. It is a good idea to stay ahead of your pain by taking the medications you were prescribed once you get home. Typically, the pain starts improving 3-7 days after surgery. You should start weaning off the narcotic pain medication (oxycodone, hydrocodone, hydromorphone, morphine) as soon as your pain improves. Please call our office if your pain is not adequately controlled. Ice Ice your operative site at least 5 times a day for 15-30 minutes at a time. Make sure you have a thin cloth between the ice or cooling unit and your skin to prevent ghotra bite. This is especially important if you received a nerve block. Continue icing your operative site for the first 5-7 days after surgery, then as needed. Diet/Nausea/Vomiting Start by drinking clear liquids and eating crackers. If you can tolerate this, then you may resume your normal diet. If you feel nauseated or vomit, take Zofran/ondansetron (if prescribed). Please call our office if you have intractable nausea or vomiting, or, if after hours, you may go to the Emergency Room for help. Constipation Constipation is a common side effect of narcotic pain medication. If you have not had a bowel movement within 2 days after surgery, we recommend purchasing an over the counter laxative such as Milk of Magnesia, Dulcolax, or Miralax from a local pharmacy, and taking it as instructed. Call our clinic if any questions. Slings and Braces If you were placed in a sling or brace, it must be worn at all times, including sleep. You may remove your sling or brace for physical therapy, home exercises, and showering. The length of time you will be in your brace and range of motion restrictions depends on what surgery you had; these details will be reviewed at your first post-operative appointment. Nerve block The anesthesia team sometimes places a nerve block to help with post-operative pain control. This results in significant numbness and inability to move the extremity. The nerve block usually wears off in 8-12 hours, but sometimes can last up to 24 hours. Please call our office if you are still unable to move your extremity after 24 hours, unless you received a pain pump to take home. Nerve blocks typically wear off quickly, so start taking pain medication as soon as you start feeling soreness near your surgical site. Weight bearing and Range of Motion. Do not bear any weight through your operative extremity immediately after surgery. If you had upper extremity surgery, do not lift anything with that arm. If you are in a knee brace, keep it locked in place until your follow-up. We will discuss your weight bearing, range of motion, and lifting restrictions in detail at your first post-operative appointment. Continuous Passive Motion (CPM) Machine If you were prescribed a CPM machine, it will start after your first post- operative appointment, at which time we will give you instructions on the range of motion settings and duration of treatment Physical therapy You will be given a prescription for physical therapy or occupational therapy at your first post-operative appointment. Typically, patients start therapy within 1 week of surgery Wound care and showering We will inspect your wound at your first post-operative visit, and may do a dressing change at that time. Most patients will be in a water-proof dressing that is removed 14 days after surgery. It is normal to see some dried blood on the dressing. Do not remove your dressing, paper strips or sutures yourself unless you are given permission. Showering is allowed the day after surgery. Do not scrub or remove any dressings. The wound should not be submerged underwater (i.e. in a bathtub or pool) until 4 weeks after surgery NEHA stockings If you were given white stockings, these are to be worn at all times except to shower (on both legs) for the first 2 weeks after surgery. Driving You may not drive while taking narcotic pain medication or while in a cast, splint, sling or brace. You, the patient, need to make the final determination about when you are safe to drive, however, the earliest you may consider driving after surgery is below: Hand/Wrist/Elbow Surgery: 3 days Shoulder Surgery: 2 weeks Hip,/Knee/Ankle Surgery: 4 weeks Fracture repair: 6 weeks Return to Work Your return to work depends on what surgery was done and what type of work you do. Please bring any paperwork your employer needs completed to your first post-operative visit. Also, bring a description of your job duties, as this helps us to understand what risks you may face at work. Travel Avoid long distance travel (greater than 1 hour) in airplanes and cars for the first 6 weeks after surgery. If you must travel, you need to have a Doppler ultrasound done before you travel to rule out a blood clot in your legs. Follow-up You should have a follow-up appointment already scheduled 1-2 days after surgery. If not, please contact our office to make this appointment before you leave the hospital. When to call the office It is normal to have swelling and bruising in the limb that was operated on. This will improve with time. It is also normal to have fevers for the first 2 days after surgery. Reasons you should call your doctor include: Uncontrolled pain; Nausea, vomiting, or constipation that does not improve with medication; Fevers over 101.5, chills, sweats; Drainage or bleeding from the wound; Foul odor; Spreading areas of redness; Any other concerns Pending Studies at Discharge: No Stand-Alone Forms: My [facility] Medications and DC Order Prescriptions: New tramadol 50 mg tablet 50 mg PO Q6H Qty: 30 RF: 0 Continued tramadol 50 mg Tablet 100 mg PO TID RF: 0 cholecalciferol (vitamin D3) [Vitamin D3] 50 mcg (2,000 unit) Tablet 50 mcg PO QAM RF: 0 PreserVision AREDS-2 [id number] Capsule 1 tab PO BID RF: 0 Discharge Orders: Discharge Order (Routine); Ordered 02/27/20 Ordered By: Maicol Rosen Admission Data Admit Date/Time: 02/26/20 10:18 Attending Provider: Jamaal Leonard Admit Provider: Jamaal Leonard Primary Care Provider: Dave Grewal
--- NOTE | 2020-02-27 16:23 | Anesthesiology Progress Note ---
Date of Service February 27, 2020 Anesthesia Post Procedure Vital Signs Vital Signs: Temp Pulse Pulse Resp BP BP Pulse Ox 02/27/20 11:50 37.0 C 71 16 138/82 97 02/27/20 11:49 36.7 C 64 65 16 114/64 129/80 98 02/27/20 07:00 36.7 C 65 16 129/80 98 02/27/20 03:46 36.7 C 69 16 114/64 93 02/27/20 00:08 36.7 C 67 15 106/61 94 02/26/20 19:35 36.7 C 77 18 132/82 92 Pain Intensity Left Knee: Pain Intensity: 0 Notes Mental Status: alert / awake / arousable and participated in evaluation Nausea / Vomiting: adequately controlled Pain: adequately controlled Airway Patency, RR, SpO2: stable & adequate BP & HR: stable & adequate Hydration State: stable & adequate Neuraxial Anesthesia: was administered and sensory block resolved Anesthetic Complications: no major complications apparent and Pt Satisfied with anesthetic care
== END 2020-02-27 12:59 | disposition home health service (06) ==
LOC: ASU 06:03 → 3E 06:03

== ENCOUNTER 2024-01-23 09:47 | Inpatient (IN) ==
[2024-01-23 10:25] LABS: Basophils # (auto) 0.05 K/uL (0.00-0.20); Basophils % (auto) 0.7 %; Eosinophils # (auto) 0.17 K/uL (0.00-0.50); Eosinophils % (auto) 2.5 %; Hematocrit (blood only) 44.7 % (42.0-52.0); Hemoglobin 14.6 g/dl (14.0-18.0); Immature Granulocytes # (auto) 0.03 K/uL (0.01-0.20); Immature Granulocytes % (auto) 0.4 %; Mean Corpuscular Hemoglobin 30.7 pg (25.0-34.0); Mean Corpuscular Hgb Conc 32.7 g/dL (32.0-36.0); Mean Corpuscular Volume 93.9 fL (80.0-100.0); Mean Platelet Volume 10.5 fL (9.4-12.4); Monocytes # (auto) 0.64 K/uL (0.11-0.59); Monocytes % (auto) 9.3 %; Neutrophils # (auto) 4.67 K/uL (1.40-6.50); Neutrophils % (auto) 68.1 %; Platelet Count 206 K/uL (130-400); RDW Coefficient of Variation 11.9 % (11.5-14.5); RDW Standard Deviation 41.3 fL (36.4-46.3); Red Blood Count 4.76 M/uL (4.70-6.10); White Blood Count 6.86 K/ul (4.8-10.8)
--- NOTE | 2024-01-23 10:28 | Emergency Department Note ---
Impression & Plan Chest pain, Elevated troponin ED Provider Note Provider: Asael Santana MD DATE OF SERVICE: 01/23/2024 CHIEF COMPLAINT: Chest pain HISTORY OF PRESENT ILLNESS: Patient is a 88-year-old gentleman history of back issues presenting here today via ambulance from [facility] where he resides with his . Patient states he was sitting down and had breakfast and had a cup of tea. Immediately after drink this began to experience some sweating and discomfort in the bilateral upper chest to the upper mid back as well as a little bit to the jaw. Given this call 911. Given full dose aspirin a dose of nitroglycerin and pain is almost entirely resolved. Only a little bit of deep upper chest pain reported by the patient. No breathing issues. No nausea or vomiting or abdominal pain. No syncope. States twice earlier this week when he had some tea had a little bit of sweating but no pain like this. States he had a stress test years ago and does not have any known cardiac history. Has been under some stress recently with his moving into a new area at [facility] given her Alzheimer's for additional care. Did sleep okay last night denies recent illness or cough or cold. PAST MEDICAL HISTORY: As noted above MEDICATIONS: Reviewed home medication list only rarely takes an aspirin SOCIAL HISTORY: PHYSICAL EXAM: GENERAL: alert and oriented in no acute distress on stretcher Head: normocephalic and atraumatic EYES: No injection, discharge or icterus. EOMI. NECK: Trachea midline. ENT: Mucous membranes pink and moist. LUNGS: Airway patent. No retractions. Breath sounds clear with good air entry bilaterally. HEART: Regular rate and rhythm. No chest wall tenderness ABDOMEN: Soft and non-tender, without guarding or rebound. SKIN: Acyanotic, warm, dry, without rashes EXTREMITIES: Without swelling, tenderness or deformity NEUROLOGICAL: No focal deficits. No aphasia. No facial droop or slurred speech. Ambulatory. EK bpm normal sinus rhythm. No PVC or PAC. No acute ST segment elevation or depression with a QTc of 411. Some nonspecific T wave flattening noted. CONTINUOUS CARDIAC MONITORING: was ordered and showed a heart rate of 60s bpm in normal sinus rhythm Patient's laboratory studies and imaging reviewed. Differential includes Cardiac ischemia, aortic dissection, pulmonary embolism, pneumothorax, pneumonia, pericarditis, myocarditis, esophageal rupture, GERD, cholecystitis, pancreatitis, musculoskeletal, as well as other pathologies. IMPRESSION/MEDICAL DECISION MAKING: Patient well-appearing in no distress with maybe very slight upper chest discomfort this time. Did happen just after eating some tea. No exertional symptoms reported. Does report a little bit of sweating with symptoms onset earlier but no GI symptoms otherwise. Could be related to this intake but obviously with his age concern for other possible pulmonary or cardiac etiology. EKG without findings of STEMI. Troponin is sent. Basic blood work sent. Chest x-ray obtained. Doubt this represents dissection or PE given the significant improvement already with aspirin nitroglycerin. Blood work obtained without significant cytosis or anemia. No significant electrolyte abnormality signs of renal dysfunction. No other acute hepatitis or pancreatitis based on labs. Chest x-ray per my review interpretation as well as radiology report without evidence of pneumonia pneumothorax or significant fluid overload. Troponin from initial blood work normal at 9.6. Discussed with patient findings. He is pain-free at this time. Will repeat a 2-hour delta troponin ordered. Home tramadol given per his request he takes this chronically. Resting here comfortably without repeat of chest discomfort. 2- hour troponin does return significantly elevated to 202. Given this finding likely some likely mild cardiac event did occur and needs further evaluation. Patient agreeable and hospitalist was contacted for further care here at the hospital. Patient has received full dose aspirin today and will defer any further anticoagulation to the inpatient team. DIAGNOSIS: Chest pain, elevated troponin DISPOSITION: Hospitalist will evaluate Patient was agreeable with this plan. Past Med/Surg History Problem List (Updated 01/23/24 @ 13:55 by Mandie Sanchez PA-C) Non-ST elevation (NSTEMI) myocardial infarction Elevated troponin (Acute) Chest pain (Acute) SONNY positive Lumbar spinal stenosis Idiopathic peripheral neuropathy History of incisional hernia repair (08/03/21) Open Incisional incarcerated ventral Hernia Repair with Mesh - Gerber Jara, DO Encounter for pre-operative examination Osteoarthritis of left knee S/P total knee replacement using cement Incisional hernia, incarcerated Medical History BPH (benign prostatic hyperplasia) Lumbar herniated disc Macular degeneration Osteoarthritis Spinal stenosis Surgical History History of cataract surgery History of cholecystectomy History of colonoscopy History of herniorrhaphy History of incisional hernia repair (08/03/21) History of tonsillectomy History of total knee replacement S/P epidural steroid injection Family History Father Heart disease Grandfather Stroke Other No significant family history Social History Smoking Status: Never smoker Second Hand Exposure: No; Do You Dip or Chew Tobacco: No; Hx Alcohol Use: Yes Alcohol type: beer and wine Alcohol Intake Frequency: Monthly or Less Hx Substance Use: No Preferred Language: Mauritian Communication Ability: Effective Visual Impairment: No Limitations Ict Help Desk Technician Required: No Beliefs That Will Affect Care: None marital status: Current Living Situation: Spouse Current Living Situation Comment: LIVES AT [facility] current occupational status: retired How many Children do You have: 2 Feels Safe at Home: Yes Diet: regular during the past year weight has: remained stable Assistive Devices: Glasses Allergies Allergies Allergy/AdvReac Type Severity Reaction Status Date / Time naproxen [From Naprosyn] Allergy Severe Anaphylaxis Verified 08/21/23 13:29 diphenhydramine AdvReac Intermediate Urinary Verified 08/21/23 13:29 [From Benadryl] retention Home Meds Home Medications Medication Instructions Recorded Confirmed cholecalciferol (vitamin D3) 50 50 mcg PO QAM 01/29/20 08/21/23 mcg (2,000 unit) tablet (Vitamin D3) vit C 250 mg-vit E 90 mg-zinc 40 1 tab PO BID 01/29/20 08/21/23 mg-copper 1 [id number] capsule (PreserVision AREDS-2) mecobalamin (vitamin B12) 5,000 5,000 mcg PO DAILY 03/15/22 08/21/23 mcg chewable tablet tramadol 100 mg tablet 100 mg PO DAILY 03/15/22 08/21/23 aspirin 81 mg tablet,delayed 81 mg PO Q3D PRN 08/21/23 08/21/23 release Results & Data (ED) Vital Signs Vital Signs - 24 hr 01/23/24 09:54 01/23/24 09:56 01/23/24 09:56 Temperature 36.9 C Temperature Source Oral Pulse Rate 72 66 Pulse Rate [Apical] Respiratory Rate 20 Respiratory Effort / Characteristics Non-Labored Respiratory Depth Normal Blood Pressure 140/87 Blood Pressure [Right Arm] Blood Pressure Mean 104 Blood Pressure Mean [Right Arm] Pulse Oximetry 94 94 Oxygen Delivery Method Room Air Room Air Sepsis Recent Fever Within 48 Hours No Sepsis New/Unexplained Change in Mental Status No Sepsis Action Taken by Nursing No Action Required 01/23/24 10:05 01/23/24 11:16 01/23/24 12:31 Temperature Temperature Source Pulse Rate Pulse Rate [Apical] 63 75 Respiratory Rate 20 20 Respiratory Effort / Characteristics Non-Labored Non-Labored Respiratory Depth Normal Normal Blood Pressure Blood Pressure [Right Arm] 109/66 123/72 Blood Pressure Mean Blood Pressure Mean [Right Arm] 80 89 Pulse Oximetry 94 96 98 Oxygen Delivery Method Room Air Room Air Room Air Sepsis Recent Fever Within 48 Hours Sepsis New/Unexplained Change in Mental Status Sepsis Action Taken by Nursing 01/23/24 14:08 Temperature Temperature Source Pulse Rate 65 Pulse Rate [Apical] Respiratory Rate Respiratory Effort / Characteristics Respiratory Depth Blood Pressure Blood Pressure [Right Arm] Blood Pressure Mean Blood Pressure Mean [Right Arm] Pulse Oximetry Oxygen Delivery Method Sepsis Recent Fever Within 48 Hours Sepsis New/Unexplained Change in Mental Status Sepsis Action Taken by Nursing Laboratory Data 01/23/24 10:02 01/23/24 10:02 Lab Results 01/23/24 01/23/24 01/23/24 Range/Units 10:02 12:18 13:24 WBC 6.86 (4.8-10.8) K/ul RBC 4.76 (4.70-6.10) M/uL Hgb 14.6 (14.0-18.0) g/dl Hct 44.7 (42.0-52.0) % MCV 93.9 (80.0-100.0) fL MCH 30.7 (25.0-34.0) pg MCHC 32.7 (32.0-36.0) g/dL RDW Std Deviation 41.3 (36.4-46.3) fL RDW Coeff of Shaq 11.9 (11.5-14.5) % Plt Count 206 (130-400) K/uL MPV 10.5 (9.4-12.4) fL Immature Gran % (Auto) 0.4 % Neut % (Auto) 68.1 % Lymph % (Auto) 19.0 % Obion % (Auto) 9.3 % Eos % (Auto) 2.5 % Baso % (Auto) 0.7 % Neut # (Auto) 4.67 (1.40-6.50) K/uL Lymph # (Auto) 1.30 (1.20-3.40) K/uL Obion # (Auto) 0.64 H (0.11-0.59) K/uL Eos # (Auto) 0.17 (0.00-0.50) K/uL Baso # (Auto) 0.05 (0.00-0.20) K/uL Immature Gran # (Auto) 0.03 (0.01-0.20) K/uL PT 11.3 (9.0-12.0) Seconds INR 1.0 (0.9-1.1) Sodium 139 (136-145) mmol/L Potassium 3.8 (3.5-5.1) mmol/L Chloride 105 (98-107) mmol/L Carbon Dioxide 29 (21-32) mmol/L Anion Gap 5 (3-11) BUN 19 (6-23) mg/dl Creatinine 0.96 (0.6-1.4) mg/dl Est Cr Clr Drug Dosing 61.8 ml/min Est GFR ( Amer) 81.5 ml/min Est GFR (Non-Af Amer) 70.3 ml/min BUN/Creatinine Ratio 19.8 (10-20) Glucose 144 H (70-99(Fasting)) mg/dl Calcium 8.9 (8.6-10.3) mg/dl Total Bilirubin 0.6 (0.2-1.0) mg/dl AST 15 (13-39) U/L ALT 13 (7-52) U/L Alkaline Phosphatase 55 (34-104) U/L Troponin I High Sens 9.6 202.5 H* D (0-20) pg/ml Total Protein 6.9 (6.0-8.3) gm/dl Albumin 4.1 (3.4-5.0) gm/dl Globulin 2.8 (2.5-4.0) gm/dl Albumin/Globulin Ratio 1.5 (0.9-2) Lipase 33 (11-82) U/L SARS-CoV-2, RNA, NAAT NEGATIVE (NEGATIVE) Administered Medications Discontinued Medications Tramadol HCl (Tramadol Hcl 50 Mg Tablet) 50 mg PO NOW STA Stop: 01/23/24 12:13 Last Admin: 01/23/24 12:16 Dose: 50 mg Documented By: AURELIO Imaging Data Radiologist's Impression: Chest X-Ray 01/23/24 10:00 SINGLE VIEW CHEST CLINICAL HISTORY: Atypical chest pain FINDINGS: An AP, portable, upright chest radiograph is compared to study dated 07/22/2021. The heart is enlarged noting atherosclerotic calcification of the thoracic aorta. The pulmonary vasculature is noncongested. There is mild elevation of left hemidiaphragm with atelectasis at both lung bases. No airspace consolidation or large pleural effusion is identified. No pneumothorax is seen. The skeletal structures are osteopenic. The bony thorax is grossly intact. IMPRESSION: Cardiomegaly with no active disease in the chest. ACT 112: Negative or not required by law. Electronically signed by: Ishmael Burton M.D. 01/23/2024 10:31 AM Discharge Plan Visit Data Chief Complaint: Chest Pain Stated Complaint: CHEST PAIN ED Provider: Asael Santana Discharge Problem: Chest pain, Elevated troponin Patient Disposition: Being Evaluated by Hospitalist Condition: Fair Prescriptions Prescriptions: No Action tramadol 100 mg tablet 100 mg PO DAILY mecobalamin (vitamin B12) 5,000 mcg tablet,chewable 5,000 mcg PO DAILY aspirin 81 mg tablet,delayed release (DR/EC) 81 mg PO Q3D PRN Rx Instructions: taken on sunday and sunday cholecalciferol (vitamin D3) [Vitamin D3] 50 mcg (2,000 unit) Tablet 50 mcg PO [facility] PreserVision AREDS-2 [id number] Capsule 1 tab PO BID Referrals Referrals: Carmela Booth [Primary Care Provider] -
[2024-01-23 10:32] LABS: Albumin Globulin Ratio 1.5 (0.9-2); Albumin Level 4.1 gm/dl (3.4-5.0); BUN Creatinine Ratio 19.8 (10-20); Bilirubin,Total 0.6 mg/dl (0.2-1.0); Calcium 8.9 mg/dl (8.6-10.3); Creatinine Clr Calc Pharmacy 61.8 ml/min; Est GFR (African American) 81.5 ml/min; Est GFR (Non-African American) 70.3 ml/min; Globulin 2.8 gm/dl (2.5-4.0); Potassium 3.8 mmol/L (3.5-5.1); Total Protein 6.9 gm/dl (6.0-8.3)
--- NOTE | 2024-01-23 10:32 | XRay Report ---
SINGLE VIEW CHEST CLINICAL HISTORY: Atypical chest pain FINDINGS: An AP, portable, upright chest radiograph is compared to study dated 07/22/2021. The heart is enlarged noting atherosclerotic calcification of the thoracic aorta. The pulmonary vasculature is no ncongested. There is mild elevation of left hemidiaphragm with atelectasis at both lung bases. No air space consolidation or large pleural effusion is identified. No pneumothorax is seen. The skeletal st ructures are osteopenic. The bony thorax is grossly intact. IMPRESSION: Cardiomegaly with no active disease in the chest. ACT 112: Negative or not required by law. Electronically signed by: Ishmael Burton M.D. 01/23/2024 10:31 AM
[2024-01-23 10:38] LABS: Troponin I High Sensitivity 9.6 pg/ml (0-20)
[2024-01-23 10:39] LABS: Prothrombin Time 11.3 Seconds (9.0-12.0)
[2024-01-23] MEDS: traMADol HCL 50 MG TABLET PO STA (12:16)
--- NOTE | 2024-01-23 13:57 | History & Physical Report ---
Date of Service January 23, 2024 Assessment & Plan (1) Non-ST elevation (NSTEMI) myocardial infarction: Plan: Acute - Admit to PCU - Serial HS troponins until peak and EKGs prn chest pain - Obtain TTE - Initiate Heparin gtt per protocol - NPO after MN for possible left heart cath - Consult cardiology, d/w Dr. Fontanez, appreciated recommendations - Lipid panel in AM - Continue ASA 81mg daily - SL Nitro 0.4mg PRN chest pain, if unrelieved by nitro, Morphine also ordered (2) Osteoarthritis of left knee: Plan: Chronic - Continue Tramadol 50mg q4 prn noncardiac pain (3) Lumbar spinal stenosis: Plan: Chronic - Continue Tramadol as above Plan PT/OT eval and treat. Will be on Heparin gtt which will provide VTE ppx. CBC, BMP, and mag ordered for tomorrow AM. Above plan of care has been d/w Dr. Lucero who will also see and evaluate this patient. Further orders as warranted per attending. History of Present Illness Chief Complaint: Chest pain Primary Care Provider: Carmela Valente is an 88 yo M with a pmhx of OA, idiopathic peripheral neuropathy, and lumbar spinal stenosis who presents to the ER today c/o chest pain. He reports that he was sitting at his kitchen table finishing breakfast when he had a drink of his tea, he began experienced abrupt onset midsternal chest pain that radiated outward and into his jaw with associated diaphoresis. He then went to the [facility] where he had an EKG performed which was not grossly abnormal. However, the provider that assessed him recommended that he go to the ER for evaluation. EMS administered ASA 324mg x1 and one spray of Nitroglycerin and the pain subsided. He denied associated shortness of breath or n/v. Upon arrival to the ER, his EKG was nonacute, did have some subtle ST-T wave inversion in the anterolateral leads. His initial HS trop was 9.6 however 2-hour repeat was 205. He was then referred to the hospital medicine team for admission. He is currently resting in his room in the ER and is chest pain free. He has no prior cardiac history, no CAD or stenting. He was previously on a statin but this was discontinued by his PCP a few years ago due to his cholesterol being normal. Allergies Allergy/AdvReac Type Severity Reaction Status Date / Time esomeprazole [From Vimovo] Allergy Severe Anaphylaxis Unverified 01/23/24 14:25 naproxen [From Naprosyn] Allergy Severe Anaphylaxis Verified 01/23/24 14:25 diphenhydramine AdvReac Intermediate Urinary Verified 01/23/24 14:25 [From Benadryl] retention Home Medications Medication Instructions Recorded Confirmed Type cholecalciferol (vitamin D3) 50 50 mcg PO QAM 01/29/20 01/23/24 History mcg (2,000 unit) tablet (Vitamin D3) vit C 250 mg-vit E 90 mg-zinc 40 1 tab PO BID 01/29/20 01/23/24 History mg-copper 1 [id number] capsule (PreserVision AREDS-2) mecobalamin (vitamin B12) 5,000 5,000 mcg PO DAILY 03/15/22 01/23/24 History mcg chewable tablet aspirin 81 mg tablet,delayed 81 mg PO DAILY PRN Pain 08/21/23 01/23/24 History release tramadol 50 mg tablet 50 mg PO TID 01/23/24 01/23/24 History Past Med/Surg History Problem List (Updated 01/24/24 @ 09:50 by Toro Fontanez MD) Right ventricular dilation Non-ST elevation (NSTEMI) myocardial infarction Elevated troponin (Acute) Chest pain (Acute) SONNY positive Lumbar spinal stenosis Idiopathic peripheral neuropathy History of incisional hernia repair (08/03/21) Open Incisional incarcerated ventral Hernia Repair with Mesh - Gerber Jara, DO Encounter for pre-operative examination Osteoarthritis of left knee S/P total knee replacement using cement Incisional hernia, incarcerated Medical History BPH (benign prostatic hyperplasia) Lumbar herniated disc Macular degeneration Osteoarthritis Spinal stenosis Surgical History History of cataract surgery History of cholecystectomy History of colonoscopy History of herniorrhaphy History of incisional hernia repair (08/03/21) History of tonsillectomy History of total knee replacement S/P epidural steroid injection Family History Father Heart disease Grandfather Stroke Other No significant family history Social History Smoking Status: Never smoker Second Hand Exposure: No; Do You Dip or Chew Tobacco: No; Hx Alcohol Use: No Hx Substance Use: No Preferred Language: Bhutanese Communication Ability: Effective Visual Impairment: No Limitations Soils Technician Required: No Beliefs That Will Affect Care: None marital status: Current Living Situation: Spouse Current Living Situation Comment: LIVES AT [facility] current occupational status: retired How many Children do You have: 2 Other Information That Helps Us Care for You: No Feels Safe at Home: Yes Safety Concerns: Feels Safe At This Time Diet: regular during the past year weight has: remained stable Assistive Devices: Cane Review of Systems 2 Review of Systems: All systems reviewed and are unremarkable except as noted in HPI and below. Denies fever, chills, fatigue, headache, nasal congestion, sore throat, cough, shortness of breath, palpitations, orthopnea, PND, abdominal pain, n/v/d, constipation, dysuria, hematuria, frequency, back pain, joint pain or swelling, easy bruising or bleeding, skin lesions or rashes. Physical Exam 2 Physical Exam: GENERAL: 88 yo well-nourished elderly M. NAD. EYES: EOMI. PERRLA. Anicteric. HENT: Moist mucous membranes. No scleral icterus. No cervical lymphadenopathy. LUNGS: Clear to auscultation bilaterally. No accessory muscle use. No W/R/R. CARDIOVASCULAR: Regular rate and rhythm. No M/G/R. No JVD. ABDOMEN: Soft, non-tender and non-distended. No palpable masses. Bowel sounds normoactive x 4 quad. EXTREMITIES: No edema. Non-tender. Peripheral pulses +2/4. NEUROLOGIC: A&O x3. No focal neurological deficits. CN II-XII grossly intact. PSYCHIATRIC: Cooperative. Appropriate mood and affect. SKIN: Warm, dry, intact. No rashes or lesions. Results & Data Results & Data Vital Signs (Past 12 Hours) Vital Signs Temp Pulse Pulse Resp BP BP Pulse Ox 01/23/24 12:31 75 20 123/72 98 01/23/24 11:16 63 20 109/66 96 01/23/24 10:05 94 01/23/24 09:56 94 01/23/24 09:56 36.9 C 66 20 140/87 94 01/23/24 09:54 72 O2 Del Method 01/23/24 12:31 Room Air 01/23/24 11:16 Room Air 01/23/24 10:05 Room Air 01/23/24 09:56 Room Air 01/23/24 09:56 Room Air 01/23/24 09:54 Laboratory Results 01/23/24 10:02 01/23/24 10:02 Diagnostic Findings Chest X-Ray 01/23/24 10:00 SINGLE VIEW CHEST CLINICAL HISTORY: Atypical chest pain FINDINGS: An AP, portable, upright chest radiograph is compared to study dated 07/22/2021. The heart is enlarged noting atherosclerotic calcification of the thoracic aorta. The pulmonary vasculature is noncongested. There is mild elevation of left hemidiaphragm with atelectasis at both lung bases. No airspace consolidation or large pleural effusion is identified. No pneumothorax is seen. The skeletal structures are osteopenic. The bony thorax is grossly intact. IMPRESSION: Cardiomegaly with no active disease in the chest. ACT 112: Negative or not required by law. Electronically signed by: Ishmael Burton M.D. 01/23/2024 10:31 AM ECG Additional Comments: EKG: NSR with subtle ST-T wave inversion in anterolateral leads Code Status & VTE Plan Code Status DNR/DNI - confirmed with patient VTE Prophylaxis Plan VTE Prophylaxis will be ordered: Yes Supervising Physician Co-Signing Physician Notes I personally saw and examined the patient. I independently reviewed the labs, EKG, imaging, problem list, medication list, past medical history and family history. I verified all huertas points and agree with Mandie Sanchez PA-C with the following exceptions and/or additions: 88 year old male presents to the ER with chest pain after drinking hot tea. O/E HS RRR, no murmurs, Chest CTAB, Abdo SNT A/P NSTEMI - aspirin, clopidogrel, IV heparin low dose with bolus, metoprolol, consider statin pending lipid panel in AM but given advance age will defer on admission. Nitroglycerin 0.4mg SL PRN for chest pain. TTE. Consult cardiology. NPO after midnight to consider cardiac catheterization PG Care Time/CCT Total # of Minutes Spent Total Time Spent with Patient: Total time spent is greater than 50% in coordination of care (as documented) at patient's floor/unit and/or counseling patient: 77 minutes Coding Level of Care Code 04452 INT INP/OBS CARE 3/75MIN Diagnoses Non-ST elevation (NSTEMI) myocardial infarction I21.4 Osteoarthritis of left knee M17.12 Lumbar spinal stenosis M48.061
[2024-01-23 14:31] LABS: Magnesium 2.2 mg/dl (1.7-2.4)
[2024-01-23 14:33] LABS: Partial Thromboplastin Time 26 Seconds (21-31)
[2024-01-23] MEDS: NITROGLYCERIN SL 0.4 MG/TAB TAB ONE ×2 (15:12)
--- NOTE | 2024-01-23 15:24 | Electrocardiogram Report ---
Test Reason : Blood Pressure : */* mmHG Vent. Rate : 65 BPM Atrial Rate : 65 BPM P-R Int : 152 ms QRS Dur : 90 ms QT Int : 396 ms P-R-T Axes : 31 42 9 degrees QTcB Int : 411 ms Normal sinus rhythm Nonspecific T wave abnormality Abnormal ECG When compared with ECG of 22-Jul-2021 09:54, Nonspecific T wave abnormality now evident in Anterolateral leads Confirmed by oTro Fontanez ([id number]) on 01/23/2024 3:23:29 PM Referred By: Carmela Booth Confirmed By: Toro Fontanez
--- NOTE | 2024-01-23 15:48 | XCELERA ---
[id number]
[2024-01-23] MEDS ORDERED: ALUMINUM/MAGNESIUM SUSP 30 ML UDC PO PRN (16:22)
[2024-01-23] MEDS ORDERED: NITROGLYCERIN SL 0.4 MG/TAB TAB SL PRN (16:22)
[2024-01-23] MEDS ORDERED: MAGNESIUM HYDROXIDE SUSP 30 ML UDC PO PRN (16:22)
[2024-01-23] MEDS ORDERED: ONDANSETRON INJ 2 MG/ML 2 ML VIAL IV PRN (16:22)
[2024-01-23] MEDS ORDERED: ACETAMINOPHEN 325 MG TAB PO PRN (16:22)
[2024-01-23] MEDS: OPTIRAY 320 125ml IV ONE (16:45)
--- NOTE | 2024-01-23 17:05 | CT Scan Report ---
CT ANGIOGRAM OF THE CHEST CLINICAL HISTORY: Atypical chest pain COMPARISON STUDY: Chest x-ray dated 01/23/2024. TECHNIQUE: Following the IV administration of 118 cc of Optiray 320, CT angiogram of the chest was pe rformed from the upper abdomen to the thoracic inlet utilizing the pulmonary embolus protocol. Images are reviewed in the axial, sagittal, and coronal planes. 3-D MIPS images are created and assessed. I V contrast was administered without complication. A dose lowering technique was utilized adhering to the principles of ALARA. CT DOSE: 798.59 mGy.cm FINDINGS: Thyroid: Normal in size and heterogeneous in attenuation. Thoracic aorta: There is atherosclerotic calcification of the thoracic aorta. There is mild aneurysma l dilatation of the ascending thoracic aorta which measures up to 4.1 cm diameter. The remainder of t he thoracic aorta is normal in caliber, and the arch demonstrates standard 3-vessel anatomy. The thor acic aorta is not well opacified. Pulmonary vasculature: The main pulmonary arteries are dilated suggesting pulmonary artery hypertensi on. There are no filling defects identified in main, lobar, or segmental pulmonary branches to sugges t pulmonary embolus. Heart: The heart is enlarged and without pericardial effusion. The coronary arteries are densely calc ified. Lungs and pleural spaces: Evaluation of the lung parenchyma is modestly degraded by motion artifact. No airspace consolidation or pleural effusion is identified. Scarring/atelectasis is noted at the abimbola g bases. A 7 mm right lower lobe pulmonary nodule is seen on image #65 and a 3 mm right lower lobe no dule is seen on image #57. A 5 mm left lower lobe nodule is seen on image #88, a 3 mm left lower lobe nodule is seen on image #70, and a 4 mm pleural-based nodule in the right middle lobe along the felice r fissure is seen on image #80. A calcified granuloma is noted in the left upper lobe. Mediastinum: There are calcifications containing mediastinal nodes. No lymphadenopathy is seen. Beatrice: There are calcified left hilar nodes. No adenopathy is seen. Axillae: There is no axillary lymphadenopathy. Upper abdomen: The gallbladder is surgically absent. Diverticula are noted in the partially imaged co radha. There are calcified splenic granulomas. Skeletal structures: The skeletal structures are osteopenic. Degenerative change is noted in the shou lders and spine. No lytic or blastic bony lesions are seen. IMPRESSION: 1. There is no evidence of pulmonary embolus in the main, lobar, or segmental pulmonary arteries. 2. There is no airspace consolidation or pleural effusion. 3. Cardiomegaly noting advanced coronary artery atherosclerosis. 4. Scattered subcentimeter pulmonary nodules measure up to 7 mm. If warranted these can be followed a s per the Fleischner criteria. See below. 5. There is mild aneurysmal dilatation of the ascending thoracic aorta which measures up to 4.1 cm in diameter. 6. Additional findings as above. Please refer to below summary of Fleischner criteria recommendations for follow-up of incidental CT n odules (Michaela Kennedy, Guidelines for management of small pulmonary nodules detected on CT scans: A sta tement from the Fleischner Society, Radiology 237: [phone].) SOLID NODULES Solitary nodule size: <6 mm * low risk patients: no follow-up needed * high risk patients: optional CT at 12 months Solitary nodule size: 6-8 mm * low risk patients: follow-up at 6-12 months, then consider further follow-up at 18-24 months * high risk patients: initial follow-up CT at 6-12 months and then at 18-24 months if no change Solitary nodule size: >8 mm * either low or high risk patients - consider follow-up CT at 3 months, and/or CT-PET, and/or biopsy Multiple nodules size: <6 mm * low risk patients: no routine follow-up * high risk patients: optional CT at 12 months Multiple nodules size: 6-8 mm * low risk patients: follow-up at 3-6 months, then consider further follow-up at 18-24 months * high risk patients: follow-up at 3-6 months, then at 18-24 months if no change Multiple nodules size: >8 mm * low risk patients: follow-up at 3-6 months, then consider further follow-up at 18-24 months * high risk patients: follow-up at 3-6 months, then at 18-24 months if no change Note: newly detected indeterminate nodule in persons 35 years of age or older. * low risk patients: minimal or absent history of smoking and/or other known risk factors * high risk patients: history of smoking or of other known risk factors (e.g. first degree relative with lung cancer, or exposure to asbestos, radon, uranium) * if a nodule up to 8 mm is partly solid or is ground glass further follow-up is required after 24 m onths to exclude possible slow growing adenocarcinoma (EVANGELINA) SUBSOLID NODULES Solitary pure ground-glass nodule * nodule size <6 mm - no CT follow-up required * nodule size >=6 mm - follow-up CT at 6-12 months, then every 2 years until 5 years Solitary part-solid nodule * nodule size <6 mm - no CT follow-up required * nodule size >=6 mm - follow-up CT at 3-6 months. If unchanged, and solid component remains <6 mm, then annual follow-up for 5 years Multiple subsolid nodules * nodule size <6 mm - follow-up CT at 3-6 months, consider further follow-up at 2 and 4 years if sta ble * nodule size >=6 mm - follow-up CT at 3-6 months, subsequent management based on the most suspiciou s nodule(s) ACT 112: Negative or not required by law. Electronically signed by: Ishmael Burton M.D. 01/23/2024 5:02 PM
[2024-01-23] MEDS: HEPARIN SOD (PORCINE) 1000 UNIT/ML IV ONE (19:30)
[2024-01-23] MEDS: HEPARIN SODIUM/DEXTROSE 25,000 UNITS/500 ML BAG IV SCH (19:31)
[2024-01-23] MEDS: Heparin IV Adult Wt-Based Low-Dose w/ INITIAL Bolus Protocol IV SCH (19:39)
[2024-01-23] MEDS: traMADol HCL 50 MG TABLET PO PRN (20:07)
[2024-01-24] MEDS: METOPROLOL TARTRATE 25 MG TAB PO SCH (00:25)
[2024-01-24] MEDS: CLOPIDOGREL BISULFATE 300 MG TAB PO STA (00:47)
[2024-01-24 01:33] LABS: Basophils # (auto) 0.05 K/uL (0.00-0.20); Basophils % (auto) 0.6 %; Eosinophils # (auto) 0.18 K/uL (0.00-0.50); Eosinophils % (auto) 2.2 %; Hematocrit (blood only) 40.4 % (42.0-52.0); Hemoglobin 13.6 g/dl (14.0-18.0); Immature Granulocytes # (auto) 0.03 K/uL (0.01-0.20); Immature Granulocytes % (auto) 0.4 %; Lymphocytes # (auto) 1.37 K/uL (1.20-3.40); Lymphocytes % (auto) 16.9 %; Mean Corpuscular Hemoglobin 31.2 pg (25.0-34.0); Mean Corpuscular Hgb Conc 33.7 g/dL (32.0-36.0); Mean Corpuscular Volume 92.7 fL (80.0-100.0); Mean Platelet Volume 10.6 fL (9.4-12.4); Monocytes # (auto) 0.73 K/uL (0.11-0.59); Neutrophils # (auto) 5.74 K/uL (1.40-6.50); Neutrophils % (auto) 70.9 %; Platelet Count 192 K/uL (130-400); RDW Coefficient of Variation 11.9 % (11.5-14.5); RDW Standard Deviation 40.6 fL (36.4-46.3); Red Blood Count 4.36 M/uL (4.70-6.10)
[2024-01-24 01:41] LABS: BUN Creatinine Ratio 20.4 (10-20); Calcium 8.5 mg/dl (8.6-10.3); Chol HDL Ratio 4.5 (0-5); Creatinine Clr Calc Pharmacy 62.3 ml/min; Magnesium 2.1 mg/dl (1.7-2.4); Potassium 3.9 mmol/L (3.5-5.1)
[2024-01-24 01:43] LABS: ANTI-Xa, UFH(UnfractionatedHep 0.49 IU/ml (0.3-0.7)
[2024-01-24] MEDS: CLOPIDOGREL BISULFATE 300 MG TAB ONE (02:19)
[2024-01-24] MEDS: ASPIRIN 81 MG ECTAB PO SCH (08:29)
[2024-01-24] MEDS: CEROVITE ADV FORMULA TAB PO SCH (08:29)
[2024-01-24] MEDS: CLOPIDOGREL BISULFATE 75 MG TAB PO SCH (09:30)
--- NOTE | 2024-01-24 09:54 | Cardiology Consultation ---
Date of Consultation January 24, 2024 Assessment & Plan (1) Non-ST elevation (NSTEMI) myocardial infarction: (2) Chest pain: (3) Right ventricular dilation: Plan 1. NSTEMI: He did have an elevation in his cardiac biomarkers suggesting there was a transient period of cardiac ischemia. Whether this is related to an acute coronary syndrome is unclear. However, given his risk factors for coronary disease and biomarker elevation I did recommend coronary angiography for more d efinitive diagnosis. Explained the risks and benefits including alternatives which would be medical therapy. I explained that medical therapy has less benefit than an invasive strategy and there is a risk of recurrent symptoms or even a larger heart attack should he truly have an acute coronary syndrome that is not addressed. He will discuss his options with his daughters and make a decision later this morning. 2. Right ventricular dilation: This was a curious finding on his echocardiogram. There is no evidence of pulmonary embolus to explain his recent event or ventricular dilation. Pulmonary pressures do not appear to be elevated based on the echo evaluation. Unlikely to have a shunt at his age. No severe tricuspid regurgitation or other valvular disease. If he elects to undergo angiography we can perform right heart catheterization at the same time. No evidence of right ventricular failure on exam. 3. Mitral regurgitation: Mild. History of Present Illness Reason for Consultation: Chest pain, elevated troponin Requesting Physician: Laura Attending Physician: Pito Bonilla History of Present Illness The patient is an 88-year-old gentleman without a known history of cardiac disease who presented to the hospital for an episode of chest discomfort. The patient had been drinking tea yesterday morning. This is part of his usual morning routine. However, he began to experience some symptoms of diaphoresis and upper chest discomfort after drinking a few sips. The symptoms persisted and he presented to the medical department at [facility]. An EKG was performed he was referred to the emergency room for additional evaluation. His symptoms persisted until he was in the emergency room. Unclear resolution at that point. The patient states that twice over the past couple of weeks he has had additional episodes of diaphoresis associated with drinking tea. No associated chest pain at those times. He maintains a reasonable level of activity. He is ambulatory with a walking stick. He uses primarily for balance. He has some lumbar stenosis which limits his activity and he has some weakness in the thighs. He did not report any symptoms associated with ambulation. No exertional chest pain or dyspnea. No dizziness. He does have a history of vertigo but the symptoms are distinct from dizziness. No history of syncope. Subsequent to the admission the patient has been feeling well. He denies any recurrent episodes of chest discomfort. He continues to have some back discomfort and shoulder discomfort that he attributes to sleeping in an unfamiliar bed. He feels better sitting up in a stiff chair. Allergies Allergy/AdvReac Type Severity Reaction Status Date / Time esomeprazole [From Vimovo] Allergy Severe Anaphylaxis Unverified 01/23/24 14:25 naproxen [From Naprosyn] Allergy Severe Anaphylaxis Verified 01/23/24 14:25 diphenhydramine AdvReac Intermediate Urinary Verified 01/23/24 14:25 [From Benadryl] retention Home Medications Medication Instructions Recorded Confirmed Type cholecalciferol (vitamin D3) 50 50 mcg PO QAM 01/29/20 01/23/24 History mcg (2,000 unit) tablet (Vitamin D3) vit C 250 mg-vit E 90 mg-zinc 40 1 tab PO BID 01/29/20 01/23/24 History mg-copper 1 [id number] capsule (PreserVision AREDS-2) mecobalamin (vitamin B12) 5,000 5,000 mcg PO DAILY 03/15/22 01/23/24 History mcg chewable tablet aspirin 81 mg tablet,delayed 81 mg PO DAILY PRN Pain 08/21/23 01/23/24 History release tramadol 50 mg tablet 50 mg PO TID 01/23/24 01/23/24 History Patient History Medical History BPH (benign prostatic hyperplasia) Lumbar herniated disc Macular degeneration Osteoarthritis Spinal stenosis Surgical History History of cataract surgery History of cholecystectomy History of colonoscopy History of herniorrhaphy History of incisional hernia repair (08/03/21) History of tonsillectomy History of total knee replacement S/P epidural steroid injection Family History Father Heart disease Grandfather Stroke Other No significant family history Social History Smoking Status: Never smoker Second Hand Exposure: No; Do You Dip or Chew Tobacco: No; Hx Alcohol Use: No Hx Substance Use: No Preferred Language: French Communication Ability: Effective Visual Impairment: No Limitations Adjustment Examiner Required: No Beliefs That Will Affect Care: None marital status: Current Living Situation: Spouse Current Living Situation Comment: LIVES AT [facility] current occupational status: retired How many Children do You have: 2 Other Information That Helps Us Care for You: No Feels Safe at Home: Yes Safety Concerns: Feels Safe At This Time Diet: regular during the past year weight has: remained stable Assistive Devices: Cane Review of Systems Review of Systems: Per HPI Physical Exam Physical Exam: The patient is alert and oriented. Mood and affect appeared normal. He answered all questions appropriately. HEENT: Pupils are equal and reactive to light and accommodation. Extraocular movements are intact. The sclerae are anicteric. Neuro: Cranial nerves intact Lungs: Clear to auscultation bilaterally. He has good air movement without use of accessory muscles. No rales wheezes or rhonchi. Cardiac: Heart demonstrates a regular rate and rhythm. Normal S1 and S2. No murmurs on examination. Pulses: The patient has palpable radial pulses bilaterally that are equal in intensity Extremities: There was no evidence of hypoperfusion. There is no cyanosis or clubbing. There is no edema. Skin: I did not appreciate any rashes on examination today. Results & Data Vital Signs (Past 12 Hours) Vital Signs Temp Pulse Pulse Resp BP Pulse Ox O2 Del Method 01/24/24 09:31 36.9 C 63 18 153/94 H 95 Room Air 01/24/24 03:39 36.4 C L 59 L 18 123/78 96 Room Air 01/23/24 23:07 36.6 C 62 18 118/73 92 Room Air 01/23/24 21:51 66 Laboratory Results Abnormal Lab Results 01/23/24 01/23/24 01/23/24 10:02 12:18 13:24 WBC 6.86 RBC 4.76 Hgb 14.6 Hct 44.7 MCV 93.9 MCH 30.7 MCHC 32.7 RDW Std Deviation 41.3 RDW Coeff of Shaq 11.9 Plt Count 206 MPV 10.5 Immature Gran % (Auto) 0.4 Neut % (Auto) 68.1 Lymph % (Auto) 19.0 [place] % (Auto) 9.3 Eos % (Auto) 2.5 Baso % (Auto) 0.7 Neut # (Auto) 4.67 Lymph # (Auto) 1.30 [place] # (Auto) 0.64 H Eos # (Auto) 0.17 Baso # (Auto) 0.05 Immature Gran # (Auto) 0.03 PT 11.3 INR 1.0 APTT 26 PTT Ratio 1.0 Heparin Anti-Xa, Unfract Sodium 139 Potassium 3.8 Chloride 105 Carbon Dioxide 29 Anion Gap 5 BUN 19 Creatinine 0.96 Est Cr Clr Drug Dosing 61.8 eGFR Est GFR ( Amer) 81.5 Est GFR (Non-Af Amer) 70.3 BUN/Creatinine Ratio 19.8 Glucose 144 H Calcium 8.9 Magnesium 2.2 Total Bilirubin 0.6 AST 15 ALT 13 Alkaline Phosphatase 55 Troponin I High Sens 9.6 202.5 H* D Total Protein 6.9 Albumin 4.1 Globulin 2.8 Albumin/Globulin Ratio 1.5 Triglycerides Cholesterol LDL Cholesterol, Calc VLDL Cholesterol, Calc HDL Cholesterol Cholesterol/HDL Ratio Lipase 33 SARS-CoV-2, RNA, NAAT NEGATIVE 01/23/24 01/24/24 01/24/24 18:49 01:02 06:00 WBC 8.10 RBC 4.36 L Hgb 13.6 L Hct 40.4 L MCV 92.7 MCH 31.2 MCHC 33.7 RDW Std Deviation 40.6 RDW Coeff of Shaq 11.9 Plt Count 192 MPV 10.6 Immature Gran % (Auto) 0.4 Neut % (Auto) 70.9 Lymph % (Auto) 16.9 [place] % (Auto) 9.0 Eos % (Auto) 2.2 Baso % (Auto) 0.6 Neut # (Auto) 5.74 Lymph # (Auto) 1.37 [place] # (Auto) 0.73 H Eos # (Auto) 0.18 Baso # (Auto) 0.05 Immature Gran # (Auto) 0.03 PT INR APTT PTT Ratio Heparin Anti-Xa, Unfract 0.49 Sodium 139 Potassium 3.9 Chloride 107 Carbon Dioxide 25 Anion Gap 7 BUN 19 Creatinine 0.93 Est Cr Clr Drug Dosing 62.3 eGFR 78.98 Est GFR ( Amer) Est GFR (Non-Af Amer) BUN/Creatinine Ratio 20.4 H Glucose 105 H Calcium 8.5 L Magnesium 2.1 Total Bilirubin AST ALT Alkaline Phosphatase Troponin I High Sens 951.3 H* D 707.6 H* D 534.8 H* D Total Protein Albumin Globulin Albumin/Globulin Ratio Triglycerides 88 Cholesterol 168 LDL Cholesterol, Calc 113 VLDL Cholesterol, Calc 18 HDL Cholesterol 37 Cholesterol/HDL Ratio 4.5 Lipase SARS-CoV-2, RNA, NAAT Diagnostic Findings Chest x-ray obtained the time admission to have any acute cardiopulmonary findings Chest CTA did not reveal any evidence of pulmonary embolus. Coronary calcifications noted. Some small lung nodules of unclear significance. Echocardiogram demonstrated preserved LV systolic function and wall motion. The right ventricle was dilated with mildly reduced systolic function. Biatrial dilation. Moderate mitral annular calcification with mild mitral regurgitation. Normal pulmonary pressures. ECG Additional Comments: EKG demonstrated normal sinus rhythm with some mild nonspecific ST and T wave changes PG Care Time/CCT Total # of Minutes Spent Total Time Spent with Patient: Total time spent is greater than 50% in coordination of care (as documented) at patient's floor/unit and/or counseling patient: Coding Level of Care Code 53547 INT INP/OBS CARE 3/75MIN Diagnoses Non-ST elevation (NSTEMI) myocardial infarction I21.4 Chest pain R07.9 Right ventricular dilation I51.7
--- NOTE | 2024-01-24 12:48 | Pre Anesthesia Assessment ---
Date of Service January 24, 2024 Pre Sedation Assessment Vital Signs Temp Pulse Pulse Resp BP BP Pulse Ox 01/24/24 12:33 63 14 148/86 H 97 01/24/24 09:31 36.9 C 63 18 153/94 H 95 01/24/24 06:00 60 01/24/24 03:39 36.4 C L 59 L 18 123/78 96 01/23/24 23:07 36.6 C 62 18 118/73 92 01/23/24 21:51 66 01/23/24 19:44 37.0 C 64 17 125/75 94 01/23/24 17:55 65 01/23/24 16:15 36.6 C 68 16 148/87 H 95 01/23/24 15:44 01/23/24 15:24 75 20 128/79 90 01/23/24 14:20 70 20 98 01/23/24 14:08 65 O2 Del Method 01/24/24 12:33 Room Air 01/24/24 09:31 Room Air 01/24/24 06:00 01/24/24 03:39 Room Air 01/23/24 23:07 Room Air 01/23/24 21:51 01/23/24 19:44 Room Air 01/23/24 17:55 01/23/24 16:15 Room Air 01/23/24 15:44 Room Air 01/23/24 15:24 Room Air 01/23/24 14:20 Room Air 01/23/24 14:08 Cardiovascular + regular rate and + regular rhythm Respiratory + respiratory effort normal Pre-Sedation Airway Assessment Smoking Status: Never smoker Hx Sleep Apnea: No Hx Difficult Intubation: No Short, Thick Neck: No Thyromental Distance: > or= 3.5 Finger Breadths Oral Cavity: + WNL Mallampati Class: III ASA: ASA3 NPO Status Date of Last Intake of Fluids: 01/23/24 Time of Last Intake of Fluids: 18:00 Procedure Planning Contraindications for Sedation: none Current Medications Reviewed: Yes Notes The planned sedation has been discussed with the patient. Informed Consent was obtained. I have identified the patient, determined the appropriateness of sedation and have assessed the patient immediately prior to the procedure. All medicine(s) and interventions are by my order.
[2024-01-24] MEDS: LIDOCAINE 1% LOCAL 20 ML VIAL ONE (13:47)
[2024-01-24] MEDS: HEPARIN (PORCINE) 1000 UNIT/ML 10 ML (CATH LAB USE ONLY) ONE (13:48)
[2024-01-24] MEDS: MIDAZOLAM HCL 1 MG/ML 2ML VIAL ONE (13:48)
[2024-01-24] MEDS: fentaNYL citrate PF 100 MCG/2 ML VIAL ONE (13:49)
[2024-01-24] MEDS: OPTIRAY 350 ONE (13:50)
[2024-01-24] MEDS: NITROGLYCERIN/D5W 100MCG/ML 20ML SYR ONE (13:51)
[2024-01-24] MEDS: niCARdipine HCL INJ 2.5 MG/ML 10 ML AMP ONE (13:51)
--- NOTE | 2024-01-24 13:51 | Post Anesthesia Assessment ---
Date of Service January 24, 2024 Post Sedation Assessment Vital Signs Temp Pulse Pulse Resp BP BP Pulse Ox 01/24/24 12:33 63 14 148/86 H 97 01/24/24 09:31 36.9 C 63 18 153/94 H 95 01/24/24 06:00 60 01/24/24 03:39 36.4 C L 59 L 18 123/78 96 01/23/24 23:07 36.6 C 62 18 118/73 92 01/23/24 21:51 66 01/23/24 19:44 37.0 C 64 17 125/75 94 01/23/24 17:55 65 01/23/24 16:15 36.6 C 68 16 148/87 H 95 01/23/24 15:44 01/23/24 15:24 75 20 128/79 90 01/23/24 14:20 70 20 98 01/23/24 14:08 65 O2 Del Method 01/24/24 12:33 Room Air 01/24/24 09:31 Room Air 01/24/24 06:00 01/24/24 03:39 Room Air 01/23/24 23:07 Room Air 01/23/24 21:51 01/23/24 19:44 Room Air 01/23/24 17:55 01/23/24 16:15 Room Air 01/23/24 15:44 Room Air 01/23/24 15:24 Room Air 01/23/24 14:20 Room Air 01/23/24 14:08 Recovery Score Activity: Moves 4 extremities Respiration: Deep Breath/Cough Circulation: +/-20% PreAnes Value Consciousness: Arouseable (by name) Oxygen Saturation: O2 needed for >90% Discharge Sedation Level of Care: Fast Track Phase II Post Sedation Plan On clinical assessment, the patient appears to have tolerated the sedation without complications. Patient is recovering as anticipated. Patient will continue to be monitored by nursing and may be discharged when sedation discharge criteria are met per below protocol. Upon Completions of procedure up to 15 minutes continue every 5 minute vital signs and the P.A.R. score; then discharge to a Phase I or Fast Track to Phase II per the following guidelines: * Discharge Patient to appropriate Phase II area if PAR is 8 or greater or return to pre- procedure baseline. The post - procedure orders will be as directed. * If PAR score is less than 8 or not return to pre-procedure baseline then patient will follow Phase I monitoring till PAR is reached for Phase II. The Phase I may be done in procedure room or may call to secure a Phase I area. * If naloxone or flumazenil are used for reversal, hold in Phase I for continued monitoring from when last reversal dose was given for a minimum of 60 minutes or longer pending the nurse and/or physician discretion of patient condition before discharge to Phase II. Please call the Sedation Physician to re-evaluate and complete post-note for discharge to Phase II area. Do NOT discharge from procedure sedation or Phase 1 until post- sedation evaluation note is complete by procedure /sedation MD Sedation Discharge Instructions to be given to the patient at discharge to home.
--- NOTE | 2024-01-24 13:51 | Cardiac Catheterization ---
[facility] Data: Tie Buyer Cardiac Status Clinical evaluation leading to the procedure Diagnostic Physicians Name: Toro Fontanez MD Closure Device Recommendations: PCI without planned CABG Cardiac Cath Procedure Full Procedure Date January 24, 2024 Pre-Procedure Diagnosis Pre-Procedure Diagnosis: Non STEMI AUC Score AUC Score: 8 Post-Procedure Diagnosis Post-Procedure Diagnosis: Severe CAD Procedure(s) Performed Procedure(s) Performed: Coronary Angiography and Right Heart Cath Billboard Installer Toro Fontanez MD Trade Recruiter(s) none Estimated Blood Loss Estimated Blood Loss: 12cc Medication(s) Medication(s): Fentanyl, Heparin, Lidocaine 1%, Nicardipine, Nitroglycerin and Versed Summary of Findings Procedure performed: Right heart catheterization, selective coronary angiography Staff signals collector/analyst: Toro Fontanez MD Indication: The patient is an 88-year-old gentleman without a known history of coronary disease who presented with symptoms of chest discomfort and elevated cardiac biomarkers. Also noted on echocardiography to have dilated right-sided chambers. Procedure in detail: The patient was informed of the risks benefits and alternatives to the intended procedure, he understood such and wished to proceed. He was taken to the cardiac catheterization suite in a fasting state. Conscious sedation was administered per protocol and the patient was monitored electrocardiographically throughout today's procedure. The right wrist area was prepped and draped in usual sterile fashion. This area was anesthetized using subcutaneous administration of a lidocaine solution. The right radial artery was then accessed using Seldinger technique, and a arterial sheath was placed at this site over a guidewire. The sheath was used to facilitate passage of the cardiac catheter for coronary angiography and left heart catheterization. It should be noted that the right subclavian system was quite tortuous and this compromised rotation of the cardiac catheters. Coronary angiogram was then obtained in multiple orthogonal views prior to removal of the catheters. The right antecubital vein had also been accessed using sterile technique. An IV was exchanged at the site for a 6 Mexican venous sheath. This sheath was used to facilitate passage of balloontipped catheter for pressure measurements in the pulmonary artery, right ventricle and right atrium. It should be noted that her initial attempts with a 6 Mexican catheter were unsuccessful due to difficulty advancing the catheter through the subclavian system. This was exchanged for a 5 Mexican balloontipped catheter which worked well. At the conclusion of the procedure the sheaths were removed and hemostasis was achieved at the access site using manual pressure. The patient tolerated procedure well, there were no immediate complications. Equipment used: 5 Mexican Hampton 4, 6 Mexican JR 4, 5 Mexican balloontipped PA catheter Findings: Coronary angiography Left main: Left main was normal in size and caliber and bifurcated normally into the left anterior sending left circumflex artery. Left anterior descending colon left anterior descending was a large transapical vessel. It narrowed in its proximal portion to approximately 90% mid stenosis. This appeared heavily calcified. There was a subtotaled first diagonal branch and a small second diagonal branch. There was a diminutive third diagonal branch. There were additional sequential lesions in the distal LAD. Left circumflex: Left circumflex was a large nondominant vessel. It produced a very large first OM branch with a discrete 70 to 80% stenosis in its proximal portion. There was a large second OM branch with luminal irregularities but no discrete stenoses. Right coronary: The right coronary artery was a normal size dominant vessel. There were luminal irregularities throughout its course into discrete 99% stenosis in the proximal PDA. There was a posterior lateral branch was approximately 70% stenosis in its midportion. Anand cardiac output: Impression: Severe obstructive coronary artery disease involving the mid LAD, OM1, proximal PDA and mid PLB Normal pulmonary and right ventricular pressures Recommendations Recommendations: PCI without planned CABG Procedural Complication(s) None Disposition PCU I attest to the content of the Intraoperative Record and any orders documented therein. Any exceptions are noted below. [facility] Card Cath Procedure Codes Cardiac Catheterization Procedure 1: Cardiovascular Cath Procedures: 40847 Coronaries and RHC Moderate Sedation Procedure 1: Sedation/Anesthesia: 12733 Mod Sedation by the same physician;Init15 Min Child Age 5 & Up Procedure 2: Sedation/Anesthesia: 60380 Mod Sedation by the same physician; Ea [id number] Minutes PG Care Time/CCT Total # of Minutes Spent Total Time Spent with Patient: Total time spent is greater than 50% in coordination of care (as documented) at patient's floor/unit and/or counseling patient:
[2024-01-24 13:58] LABS: iSTAT Arterial Blood Gas HCO3 24 meg/L (19-24); iSTAT Arterial Blood Gas pCO2 40 mmHg (35-46); iSTAT Arterial Blood Gas pH 7.39 (7.35-7.45); iSTAT Arterial Blood Gas pO2 68 mmHg (80-95); iSTAT Carbon Dioxide 25 mmol/L (24-31); iSTAT Hematocrit 39 % (42-52); iSTAT Hemoglobin 13.3 g/dl (14.0-18.0); iSTAT Potassium 3.5 mmol/L (3.3-5.0); iSTAT Sodium 142 mmol/L (135-144)
[2024-01-24 14:28] LABS: iSTAT Arterial Blood Gas HCO3 24 meg/L (19-24); iSTAT Arterial Blood Gas pCO2 41 mmHg (35-46); iSTAT Arterial Blood Gas pH 7.38 (7.35-7.45); iSTAT Arterial Blood Gas pO2 < 32 mmHg (80-95); iSTAT Carbon Dioxide 26 mmol/L (24-31); iSTAT Hematocrit 40 % (42-52); iSTAT Hemoglobin 13.6 g/dl (14.0-18.0); iSTAT Potassium 3.5 mmol/L (3.3-5.0); iSTAT Sodium 142 mmol/L (135-144)
--- NOTE | 2024-01-24 18:39 | Hospitalist Progress Note ---
Date of Service January 24, 2024 Assessment & Plan (1) Non-ST elevation (NSTEMI) myocardial infarction: Plan: Acute - Admit to PCU - Serial HS troponins until peak and EKGs prn chest pain - Obtain TTE - Initiate Heparin gtt per protocol - NPO after MN for possible left heart cath - Consult cardiology, d/w Dr. Fontanez, appreciated recommendations - Lipid panel in AM - Continue ASA 81mg daily - SL Nitro 0.4mg PRN chest pain, if unrelieved by nitro, Morphine also ordered Plan for PCI on 01/24 for Severe obstructive coronary artery disease involving the mid LAD, OM1, proximal PDA and mid PLB Normal pulmonary and right ventricular pressures (2) Osteoarthritis of left knee: Plan: Chronic - Continue Tramadol 50mg q4 prn noncardiac pain (3) Lumbar spinal stenosis: Plan: Chronic - Continue Tramadol as above Plan PT/OT eval and treat. Admission and Anticipated Discharge Date Admission Date: January 23, 2024 Subjective 88 yo male reports feeling well. He has no new complaints. Review of Systems Review of Systems: All systems reviewed & are unremarkable except as noted in HPI & below Physical Exam Physical Exam: GENERAL: 88 yo well-nourished elderly M. NAD. EYES: EOMI. PERRLA. Anicteric. HENT: Moist mucous membranes. No scleral icterus. No cervical lymphadenopathy. LUNGS: Clear to auscultation bilaterally. No accessory muscle use. No W/R/R. CARDIOVASCULAR: Regular rate and rhythm. No M/G/R. No JVD. ABDOMEN: Soft, non-tender and non-distended. No palpable masses. Bowel sounds normoactive x 4 quad. EXTREMITIES: No edema. Non-tender. Peripheral pulses +2/4. NEUROLOGIC: A&O x3. No focal neurological deficits. CN II-XII grossly intact. PSYCHIATRIC: Cooperative. Appropriate mood and affect. SKIN: Warm, dry, intact. No rashes or lesions. Results & Data Results & Data Vital Signs (Past 12 Hours) Vital Signs Temp Pulse Resp BP Pulse Ox O2 Del Method 01/24/24 18:14 37.3 C 72 18 109/70 91 Room Air 01/24/24 14:25 63 14 120/77 96 Room Air 01/24/24 14:10 61 14 113/70 96 Room Air 01/24/24 12:33 63 14 148/86 H 97 Room Air 01/24/24 09:31 36.9 C 63 18 153/94 H 95 Room Air PG Care Time/CCT Total # of Minutes Spent Total Time Spent with Patient: Total time spent is greater than 50% in coordination of care (as documented) at patient's floor/unit and/or counseling patient: Coding Level of Care Code 29009 SUB INP/OBS CARE 2/35MIN Diagnoses Non-ST elevation (NSTEMI) myocardial infarction I21.4 Osteoarthritis of left knee M17.12 Lumbar spinal stenosis M48.061
[2024-01-24] MEDS: IODIXANOL (VISIPAQUE) 320 MG/ML 100ML IV ONE (21:05)
[2024-01-24 22:01] LABS: ANTI-Xa, LMWH(Low Molecular Wt < 0.10 IU/ML (< 0.10)
[2024-01-25 05:57] LABS: Basophils # (auto) 0.06 K/uL (0.00-0.20); Basophils % (auto) 0.9 %; Eosinophils # (auto) 0.21 K/uL (0.00-0.50); Eosinophils % (auto) 3.1 %; Hematocrit (blood only) 40.6 % (42.0-52.0); Immature Granulocytes # (auto) 0.02 K/uL (0.01-0.20); Immature Granulocytes % (auto) 0.3 %; Lymphocytes % (auto) 20.8 %; Mean Corpuscular Hemoglobin 31.4 pg (25.0-34.0); Mean Corpuscular Hgb Conc 34.5 g/dL (32.0-36.0); Mean Platelet Volume 10.9 fL (9.4-12.4); Monocytes # (auto) 0.66 K/uL (0.11-0.59); Monocytes % (auto) 9.8 %; Neutrophils # (auto) 4.39 K/uL (1.40-6.50); Neutrophils % (auto) 65.1 %; Platelet Count 208 K/uL (130-400); RDW Coefficient of Variation 11.9 % (11.5-14.5); RDW Standard Deviation 39.7 fL (36.4-46.3); Red Blood Count 4.46 M/uL (4.70-6.10); White Blood Count 6.74 K/ul (4.8-10.8)
[2024-01-25 06:06] LABS: BUN Creatinine Ratio 22.8 (10-20); Calcium 8.8 mg/dl (8.6-10.3); Creatinine Clr Calc Pharmacy 63.6 ml/min; Potassium 3.8 mmol/L (3.5-5.1)
[2024-01-25 07:15] LABS: ANTI-Xa, UFH(UnfractionatedHep 0.28 IU/ml (0.3-0.7)
--- NOTE | 2024-01-25 09:32 | Pre Anesthesia Assessment ---
Date of Service January 25, 2024 Pre Sedation Assessment Vital Signs Temp Pulse Pulse Resp BP BP Pulse Ox 01/25/24 09:06 77 16 140/75 98 01/25/24 08:04 36.4 C L 65 18 127/83 96 01/25/24 07:31 62 01/25/24 03:49 36.7 C 58 L 17 117/71 95 01/25/24 00:09 36.9 C 93 H 18 117/78 93 01/24/24 21:47 69 01/24/24 21:18 66 20 107/57 L 92 01/24/24 18:14 37.3 C 72 18 109/70 91 01/24/24 16:30 73 18 145/102 H 96 01/24/24 16:06 60 16 136/86 96 01/24/24 15:30 61 18 95 01/24/24 15:06 59 L 18 125/81 95 01/24/24 14:25 63 14 120/77 96 01/24/24 14:10 61 14 113/70 96 01/24/24 12:33 63 14 148/86 H 97 O2 Del Method 01/25/24 09:06 Room Air 01/25/24 08:04 Room Air 01/25/24 07:31 01/25/24 03:49 Room Air 01/25/24 00:09 Room Air 01/24/24 21:47 01/24/24 21:18 Room Air 01/24/24 18:14 Room Air 01/24/24 16:30 Room Air 01/24/24 16:06 Room Air 01/24/24 15:30 Room Air 01/24/24 15:06 Room Air 01/24/24 14:25 Room Air 01/24/24 14:10 Room Air 01/24/24 12:33 Room Air Cardiovascular RRR, no murmur, no edema Respiratory normal respiratory effort, lungs clear to auscultation Pre-Sedation Airway Assessment Smoking Status: Never smoker Hx Sleep Apnea: No Hx Difficult Intubation: No Short, Thick Neck: No Thyromental Distance: > or= 3.5 Finger Breadths Oral Cavity: + WNL Mallampati Class: III ASA: ASA3 NPO Status Date of Last Intake of Fluids: 01/23/24 Time of Last Intake of Fluids: 18:00 Notes The planned sedation has been discussed with the patient. Informed Consent was obtained. I have identified the patient, determined the appropriateness of sedation and have assessed the patient immediately prior to the procedure. All medicine(s) and interventions are by my order.
[2024-01-25] MEDS: HEPARIN (PORCINE) 1000 UNIT/ML 10 ML (CATH LAB USE ONLY) ONE (10:17)
[2024-01-25] MEDS: MIDAZOLAM HCL 1 MG/ML 2ML VIAL ONE (10:20)
[2024-01-25] MEDS: OPTIRAY 350 ONE (10:26)
--- NOTE | 2024-01-25 10:33 | Electrocardiogram Report ---
Test Reason : Blood Pressure : */* mmHG Vent. Rate : 59 BPM Atrial Rate : 59 BPM P-R Int : 134 ms QRS Dur : 94 ms QT Int : 434 ms P-R-T Axes : 41 41 44 degrees QTcB Int : 429 ms Sinus bradycardia Otherwise normal ECG When compared with ECG of 23-Jan-2024 09:52, Nonspecific T wave abnormality no longer evident in Anterior leads Confirmed by Toro Fontanez ([id number]) on 01/25/2024 10:32:32 AM Referred By: [facility] Confirmed By: Toro Fontanez
--- NOTE | 2024-01-25 10:36 | Post Anesthesia Assessment ---
Date of Service January 25, 2024 Post Sedation Assessment Vital Signs Temp Pulse Pulse Resp BP BP Pulse Ox 01/25/24 09:06 77 16 140/75 98 01/25/24 08:04 36.4 C L 65 18 127/83 96 01/25/24 07:31 62 01/25/24 03:49 36.7 C 58 L 17 117/71 95 01/25/24 00:09 36.9 C 93 H 18 117/78 93 01/24/24 21:47 69 01/24/24 21:18 66 20 107/57 L 92 01/24/24 18:14 37.3 C 72 18 109/70 91 01/24/24 16:30 73 18 145/102 H 96 01/24/24 16:06 60 16 136/86 96 01/24/24 15:30 61 18 95 01/24/24 15:06 59 L 18 125/81 95 01/24/24 14:25 63 14 120/77 96 01/24/24 14:10 61 14 113/70 96 01/24/24 12:33 63 14 148/86 H 97 O2 Del Method 01/25/24 09:06 Room Air 01/25/24 08:04 Room Air 01/25/24 07:31 01/25/24 03:49 Room Air 01/25/24 00:09 Room Air 01/24/24 21:47 01/24/24 21:18 Room Air 01/24/24 18:14 Room Air 01/24/24 16:30 Room Air 01/24/24 16:06 Room Air 01/24/24 15:30 Room Air 01/24/24 15:06 Room Air 01/24/24 14:25 Room Air 01/24/24 14:10 Room Air 01/24/24 12:33 Room Air Recovery Score Activity: Moves 4 extremities Respiration: Deep Breath/Cough Circulation: +/-20% PreAnes Value Consciousness: Fully Awake Oxygen Saturation: > 92% On Room Air Post Anesthesia Score: 10 Discharge Sedation Level of Care: Fast Track Phase II Post Sedation Plan On clinical assessment, the patient appears to have tolerated the sedation without complications. Patient is recovering as anticipated. Patient will continue to be monitored by nursing and may be discharged when sedation discharge criteria are met per below protocol. Upon Completions of procedure up to 15 minutes continue every 5 minute vital signs and the P.A.R. score; then discharge to a Phase I or Fast Track to Phase II per the following guidelines: * Discharge Patient to appropriate Phase II area if PAR is 8 or greater or return to pre- procedure baseline. The post - procedure orders will be as directed. * If PAR score is less than 8 or not return to pre-procedure baseline then patient will follow Phase I monitoring till PAR is reached for Phase II. The Phase I may be done in procedure room or may call to secure a Phase I area. * If naloxone or flumazenil are used for reversal, hold in Phase I for continued monitoring from when last reversal dose was given for a minimum of 60 minutes or longer pending the nurse and/or physician discretion of patient condition before discharge to Phase II. Please call the Sedation Physician to re-evaluate and complete post-note for discharge to Phase II area. Do NOT discharge from procedure sedation or Phase 1 until post- sedation evaluation note is complete by procedure /sedation MD Sedation Discharge Instructions to be given to the patient at discharge to [place] [facility]odes (Charges) Indication for Procedure Indication for procedure: NSTEMI Sedation/Anesthesia Procedure 1: Sedation/Anesthesia: 23319 Mod Sedation by the same physician;Init15 Min Child Age 5 & Up (Initial 15 min, start time 0942) Total Sedation Time (minutes): 40 Procedure 2: Sedation/Anesthesia: 78623 Mod Sedation by the same physician; Ea [id number] Minutes (Additional 25 minutes, end time 1022) Total Sedation Time (minutes): 40
--- NOTE | 2024-01-25 10:38 | Post Anesthesia Assessment ---
Date of Service January 25, 2024 Post Sedation Assessment Vital Signs Temp Pulse Pulse Resp BP BP Pulse Ox 01/25/24 09:06 77 16 140/75 98 01/25/24 08:04 36.4 C L 65 18 127/83 96 01/25/24 07:31 62 01/25/24 03:49 36.7 C 58 L 17 117/71 95 01/25/24 00:09 36.9 C 93 H 18 117/78 93 01/24/24 21:47 69 01/24/24 21:18 66 20 107/57 L 92 01/24/24 18:14 37.3 C 72 18 109/70 91 01/24/24 16:30 73 18 145/102 H 96 01/24/24 16:06 60 16 136/86 96 01/24/24 15:30 61 18 95 01/24/24 15:06 59 L 18 125/81 95 01/24/24 14:25 63 14 120/77 96 01/24/24 14:10 61 14 113/70 96 01/24/24 12:33 63 14 148/86 H 97 O2 Del Method 01/25/24 09:06 Room Air 01/25/24 08:04 Room Air 01/25/24 07:31 01/25/24 03:49 Room Air 01/25/24 00:09 Room Air 01/24/24 21:47 01/24/24 21:18 Room Air 01/24/24 18:14 Room Air 01/24/24 16:30 Room Air 01/24/24 16:06 Room Air 01/24/24 15:30 Room Air 01/24/24 15:06 Room Air 01/24/24 14:25 Room Air 01/24/24 14:10 Room Air 01/24/24 12:33 Room Air Recovery Score Activity: Moves 4 extremities Respiration: Deep Breath/Cough Circulation: +/-20% PreAnes Value Consciousness: Fully Awake Oxygen Saturation: > 92% On Room Air Post Anesthesia Score: 10 Discharge Sedation Level of Care: Fast Track Phase II Post Sedation Plan On clinical assessment, the patient appears to have tolerated the sedation without complications. Patient is recovering as anticipated. Patient will continue to be monitored by nursing and may be discharged when sedation discharge criteria are met per below protocol. Upon Completions of procedure up to 15 minutes continue every 5 minute vital signs and the P.A.R. score; then discharge to a Phase I or Fast Track to Phase II per the following guidelines: * Discharge Patient to appropriate Phase II area if PAR is 8 or greater or return to pre- procedure baseline. The post - procedure orders will be as directed. * If PAR score is less than 8 or not return to pre-procedure baseline then patient will follow Phase I monitoring till PAR is reached for Phase II. The Phase I may be done in procedure room or may call to secure a Phase I area. * If naloxone or flumazenil are used for reversal, hold in Phase I for continued monitoring from when last reversal dose was given for a minimum of 60 minutes or longer pending the nurse and/or physician discretion of patient condition before discharge to Phase II. Please call the Sedation Physician to re-evaluate and complete post-note for discharge to Phase II area. Do NOT discharge from procedure sedation or Phase 1 until post- sedation evaluation note is complete by procedure /sedation MD Sedation Discharge Instructions to be given to the patient at discharge to home. [facility] Procedure Codes (Charges) Indication for Procedure Indication for procedure: Non-ST elevation [place] Sedation/Anesthesia Procedure 1: Sedation/Anesthesia: 64676 Mod Sedation by the same physician;Init15 Min Child Age 5 & Up (Initial 15 minutes, start time 0942) Total Sedation Time (minutes): 40 Procedure 2: Sedation/Anesthesia: 24134 Mod Sedation by the same physician; Ea [id number] Minutes (Additional 25 minutes, end time 1022) Total Sedation Time (minutes): 40
[2024-01-25] MEDS: NITROGLYCERIN/D5W 100MCG/ML 20ML SYR ONE (10:50)
[2024-01-25] MEDS: fentaNYL citrate PF 100 MCG/2 ML VIAL ONE (11:04)
[2024-01-25] MEDS: niCARdipine HCL INJ 2.5 MG/ML 10 ML AMP ONE (11:04)
[2024-01-25] MEDS: ATORVASTATIN 40 MG TAB PO SCH (11:57)
--- NOTE | 2024-01-25 18:24 | Cardiac Catheterization ---
[facility] Data: Director Financial Services Cardiac Status Clinical evaluation leading to the procedure CAD Presenation: Non STEMI Anginal Classification: CCS III Heart Failure: No Cardiogenic Shock within 24 Hours: No Cardiac Arrest within 24 Hours: No Imaging Studies Past 6 Months: Yes (Yes diagnostic cardiac cath) Coronary Anatomy Dominant: Left (See diagnostic report, Dr. Fontanez) Diagnostic Physicians Name: Aung Monroy MD, PhD Closure Device Percutaneous Entry Location: Femoral Closure Device: Angio-Seal Recommendations: PCI without planned CABG PCI Indication: PCI for high risk Non-GUSTABO Lesion Segment Name: Mid LAD Culprit Artery: Yes Stenosis Prior to Rx (%): 90% Chronic Total Occlusion: No Pre-Procedure PATTI Flow: 2 Previously Treated Lesion: No Lesion Complexity: High/C Lesion Length (mm): 12 mm Thrombus Present: No Bifurcation Lesion: Yes Guidewire Across Lesion: Yes Intraprocedure Events Significant Disection: No Perforation: No Cardiac Cath Procedure Full Procedure Date January 25, 2024 Pre-Procedure Diagnosis Pre-Procedure Diagnosis: Non STEMI AUC Score AUC Score: 07 Post-Procedure Diagnosis Post-Procedure Diagnosis: Severe CAD and Successful PCI Procedure(s) Performed Procedure(s) Performed: Drug Eluting Stent, Ultrasound Guided Vascular Access and Procedure (Intracoronary lithotripsy (shockwave)) Supervisor Intermediates Aung Monroy MD, PhD National Coverage Specialist(s) none Estimated Blood Loss Estimated Blood Loss: 15 cc Medication(s) Medication(s): Fentanyl, Heparin, Lidocaine 1% and Versed Summary of Findings Brief description: Patient was brought to the cardiac catheterization suite where he was shaved and prepped in a sterile fashion. Sedated using IV Versed and fentanyl. Soft tissues of the right groin were anesthetized using 10 mL of 1% Xylocaine. Using the ultrasound for guidance (image saved), the right femoral artery was accessed and a 6 Syrian femoral artery sheath was placed. All catheters were advanced and exchanged over a 0.035 J-tip wire. The ACT was checked and additional heparin was provided in anticipation of PCI. ACT was checked intermittently throughout the case and additional heparin provided as needed. A 6 Syrian EBU 3.5 guide catheter was used to engage the left main coronary artery. A BMW reversal guidewire was advanced and with some difficulty was able to be passed distally in the LAD. Predilatation of the Heavily calcified LAD lesion was performed using a 1.5 x 12 mm sprinter balloon at 12 perlita. Additional predilatation was performed with a 2.25 x 12 NC sprinter across the lesion at 15 perlita. Balloon was removed and we next proceeded with intracoronary lithotripsy. The 2.5 x 12 mm "shockwave" lithotripsy balloon was advanced and positioned across the calcified lesion where it was initially inflated to 4 perlita. Lithotripsy run was initiated. 2 additional runs were performed with the balloon inflated at 6 perlita. Lithotripsy balloon was removed. Additional predilatation was performed with a 2.5 x 15 mm NC sprinter balloon at 14 perlita. Harvesting Manager angiography suggested lesion was now appropriate for stent implantation. A 2.5 x 18 mm Calvin drug-eluting stent was then delivered across the lesion where it was deployed at 14 perlita. Stent balloon was removed and curriculum development manager angiography was again performed. The BMW reversal guidewire was removed and final angiographic evaluation was performed in orthogonal views. The guide catheter was removed. Limited right femoral artery angiography was performed to evaluate for closure. Findings were favorable, therefore, the femoral artery sheath was exchanged for a 6 Syrian Angio-Seal closure device. This was deployed in the recommended fashion. We obtained immediate hemostasis and the patient remained hemodynamically stable. He was returned to the recovery area. This ended the case. PCI of LAD: Successful implantation of a 2.5 x 18 mm Patriot drug-eluting stent across the lesion following intracoronary lithotripsy. 0% residual stenosis PATTI-3 flow post PCI No evidence of dissection or perforation post PCI Summary: 1. Successful PCI of the heavily calcified LAD using intracoronary lithotripsy and drug-eluting stent implantation. 2. Patient will be on dual antiplatelet therapy for at least 1 to 2 years. 3. Guideline directed medical therapy for secondary prevention of coronary disease per primary safety assistant. Hemodynamics Rest Ao:: 130/74 mmHg Final Ao: 153/78 mmHg LV: not performed Recommendations Recommendations: PCI without planned CABG Radiation Exposure (mGy) 1959 mGy, fluoroscopy time 11.0 minutes Contrast (mls) 165 cc Anesthesia 1 mg Versed, 25 mcg fentanyl. Start time 0942, end time 1022 Procedural Complication(s) None Disposition PCU I attest to the content of the Intraoperative Record and any orders documented therein. Any exceptions are noted below. [facility] Card Cath Procedure Codes Moderate Sedation Procedure 1: Sedation/Anesthesia: 15047 Mod Sedation by the same physician;Init15 Min Child Age 5 & Up (Initial 15 minutes, start time 0942) Procedure 2: Sedation/Anesthesia: 87594 Mod Sedation by the same physician; Ea [id number] Minutes (Additional 25 minutes, end time 1022) Angioplasty Procedure 1: Cardiovascular Angioplasty Procedures: 01603 PTCA; Single mafor coronary artery or branch RC LC LD (Intracoronary lithotripsy) Stenting Procedure 1: Cardiovascular Stent Procedures: 52412 Perc transcatheter placement of intracoronary stent(s), with ang (LAD) PG Care Time/CCT Total # of Minutes Spent Total Time Spent with Patient: Total time spent is greater than 50% in coordination of care (as documented) at patient's floor/unit and/or counseling patient:
--- NOTE | 2024-01-25 18:38 | Electrocardiogram Report ---
Test Reason : Blood Pressure : */* mmHG Vent. Rate : 56 BPM Atrial Rate : 56 BPM P-R Int : 138 ms QRS Dur : 88 ms QT Int : 442 ms P-R-T Axes : 42 35 14 degrees QTcB Int : 426 ms Sinus bradycardia Otherwise normal ECG When compared with ECG of 23-Jan-2024 15:11, No significant change was found Confirmed by Toro Fontanez ([id number]) on 01/25/2024 6:38:49 PM Referred By: [facility] Confirmed By: Toro Fontanez
--- NOTE | 2024-01-26 07:31 | Cardiology Progress Note ---
Date of Service January 26, 2024 Assessment & Plan (1) Non-ST elevation (NSTEMI) myocardial infarction: (2) Chest pain: (3) Right ventricular dilation: Plan 1. NSTEMI: Catheterization revealed three-vessel coronary disease. The likely culprit lesion was the mid LAD. He underwent percutaneous intervention at this site yesterday with good result. No evident complication. 2. Right ventricular dilation: This was a curious finding on his echocardiogram. Right heart catheterization did not reveal elevated pulmonary or right ventricular pressures. No severe tricuspid regurgitation and no evidence of right heart failure. 3. Mitral regurgitation: Mild. I think the patient will be stable for discharge today. He can continue his current medical regimen which includes aspirin, Plavix, metoprolol and atorvastatin. He should refrain from vigorous use of the right hand or wrist for another 5 days. He should not lift anything over 10 pounds or perform any straining for another 7 days. I will request a follow-up appointment in our clinic within the next couple of weeks. Admission and Anticipated Discharge Date Admission Date: January 23, 2024 Subjective This morning patient claims to be feeling well. He was ambulatory last evening around his room without significant symptom. No dizziness or lightheadedness. No pain in the right hand or right groin access site. Review of Systems Review of Systems: Per HPI Physical Exam Physical Exam: The patient is alert and oriented. Mood and affect appeared normal. He answered all questions appropriately. HEENT: Pupils are equal and reactive to light and accommodation. Extraocular movements are intact. The sclerae are anicteric. Neuro: Cranial nerves intact Lungs: Clear to auscultation bilaterally. He has good air movement without use of accessory muscles. No rales wheezes or rhonchi. Cardiac: Heart demonstrates a regular rate and rhythm. Normal S1 and S2. No murmurs on examination. Pulses: The patient has palpable radial pulses bilaterally that are equal in intensity Extremities: There was no evidence of hypoperfusion. There is no cyanosis or clubbing. There is no edema. Good perfusion of the right hand. Evaluation of the groin did not reveal any evidence of hematoma. No bruit on auscultation. Skin: I did not appreciate any rashes on examination today. ENMT: Mallampati Class: III Respiratory: normal respiratory effort Cardiovascular: Rate/Rhythm: regular rate and regular rhythm Results & Data Vital Signs (Past 12 Hours) Vital Signs Temp Pulse Pulse Resp BP Pulse Ox O2 Del Method 01/26/24 03:52 36.8 C 67 14 109/70 93 Room Air 01/25/24 23:42 65 01/25/24 23:10 37.0 C 64 14 102/62 93 Room Air 01/25/24 20:24 36.7 C 72 14 117/67 94 Room Air PG Care Time/CCT Total # of Minutes Spent Total Time Spent with Patient: Total time spent is greater than 50% in coordination of care (as documented) at patient's floor/unit and/or counseling patient: Coding Level of Care Code 33716 SUB INP/OBS CARE 2/35MIN Diagnoses Non-ST elevation (NSTEMI) myocardial infarction I21.4 Chest pain R07.9 Right ventricular dilation I51.7
[2024-01-26 08:28] VITALS: PULSE 66; RESP 18
[2024-01-26 11:32] VITALS: TEMP 97.9; O2SAT 90
--- NOTE | 2024-01-26 11:33 | Hospitalist Progress Note ---
Date of Service January 25, 2024 Assessment & Plan (1) Non-ST elevation (NSTEMI) myocardial infarction: Plan: Acute - Admit to PCU - Serial HS troponins until peak and EKGs prn chest pain - Obtain TTE - Initiate Heparin gtt per protocol - NPO after MN for possible left heart cath - Consult cardiology, d/w Dr. Fontanez, appreciated recommendations - Lipid panel in AM - Continue ASA 81mg daily - SL Nitro 0.4mg PRN chest pain, if unrelieved by nitro, Morphine also ordered Completed PCI on 01/24 for Severe obstructive coronary artery disease involving the mid LAD, OM1, proximal PDA and mid PLB Normal pulmonary and right ventricular pressures Plan to discharge on 01/25 (2) Osteoarthritis of left knee: Plan: Chronic - Continue Tramadol 50mg q4 prn noncardiac pain (3) Lumbar spinal stenosis: Plan: Chronic - Continue Tramadol as above Plan PT/OT eval and treat. Admission and Anticipated Discharge Date Admission Date: January 23, 2024 Subjective Patient reports doing well. He has no new complaints. Physical Exam Physical Exam: GENERAL: 88 yo well-nourished elderly M. NAD. EYES: EOMI. PERRLA. Anicteric. HENT: Moist mucous membranes. No scleral icterus. No cervical lymphadenopathy. LUNGS: Clear to auscultation bilaterally. No accessory muscle use. No W/R/R. CARDIOVASCULAR: Regular rate and rhythm. No M/G/R. No JVD. ABDOMEN: Soft, non-tender and non-distended. No palpable masses. Bowel sounds normoactive x 4 quad. EXTREMITIES: No edema. Non-tender. Peripheral pulses +2/4. NEUROLOGIC: A&O x3. No focal neurological deficits. CN II-XII grossly intact. PSYCHIATRIC: Cooperative. Appropriate mood and affect. SKIN: Warm, dry, intact. No rashes or lesions. Results & Data Results & Data Vital Signs (Past 12 Hours) Vital Signs Temp Pulse Pulse Resp BP BP Pulse Ox 01/26/24 11:30 36.6 C 18 94/59 L 90 01/26/24 08:27 36.4 C L 66 18 110/72 92 01/26/24 03:52 36.8 C 67 14 109/70 93 01/25/24 23:42 65 O2 Del Method 01/26/24 11:30 Room Air 01/26/24 08:27 Room Air 01/26/24 03:52 Room Air 01/25/24 23:42 PG Care Time/CCT Total # of Minutes Spent Total Time Spent with Patient: Total time spent is greater than 50% in coordination of care (as documented) at patient's floor/unit and/or counseling patient: Coding Level of Care Code 67496 SUB INP/OBS CARE 2/35MIN Diagnoses Non-ST elevation (NSTEMI) myocardial infarction I21.4 Osteoarthritis of left knee M17.12 Lumbar spinal stenosis M48.061
[2024-01-26 12:28] VITALS: BP 110/72
--- NOTE | 2024-01-28 08:01 | Discharge Summary ---
Discharge Summary Date of Service January 26, 2024 Principal Dx & Hospital Course #1 = Principal Diagnosis (1) Non-ST elevation (NSTEMI) myocardial infarction: Acute - Admit to PCU - Serial HS troponins until peak and EKGs prn chest pain - Obtain TTE - Initiate Heparin gtt per protocol - NPO after MN for possible left heart cath - Consult cardiology, d/w Dr. Fontanez, appreciated recommendations - Lipid panel in AM - Continue ASA 81mg daily - SL Nitro 0.4mg PRN chest pain, if unrelieved by nitro, Morphine also ordered Completed PCI on 01/24 for Severe obstructive coronary artery disease involving the mid LAD, OM1, proximal PDA and mid PLB Normal pulmonary and right ventricular pressures Plan to discharge on 01/25: Will discharge aspirin, plavix, metoprolol and atorvastatin. (2) Osteoarthritis of left knee: Chronic - Continue Tramadol 50mg q4 prn noncardiac pain (3) Lumbar spinal stenosis: Chronic - Continue Tramadol as above Plan PT/OT eval and treat. Admission HPI Per Admitting Provider Ambrosio is an 88 yo M with a pmhx of OA, idiopathic peripheral neuropathy, and lumbar spinal stenosis who presents to the ER today c/o chest pain. He reports that he was sitting at his kitchen table finishing breakfast when he had a drink of his tea, he began experienced abrupt onset midsternal chest pain that radiated outward and into his jaw with associated diaphoresis. He then went to the [facility] where he had an EKG performed which was not grossly abnormal. However, the provider that assessed him recommended that he go to the ER for evaluation. EMS administered ASA 324mg x1 and one spray of Nitroglycerin and the pain subsided. He denied associated shortness of breath or n/v. Upon arrival to the ER, his EKG was nonacute, did have some subtle ST-T wave inversion in the anterolateral leads. His initial HS trop was 9.6 however 2-hour repeat was 205. He was then referred to the hospital medicine team for admission. He is currently resting in his room in the ER and is chest pain free. He has no prior cardiac history, no CAD or stenting. He was previously on a statin but this was discontinued by his PCP a few years ago due to his cholesterol being normal. Discharge Exam GENERAL: 88 yo well-nourished elderly M. NAD. EYES: EOMI. PERRLA. Anicteric. HENT: Moist mucous membranes. No scleral icterus. No cervical lymphadenopathy. LUNGS: Clear to auscultation bilaterally. No accessory muscle use. No W/R/R. CARDIOVASCULAR: Regular rate and rhythm. No M/G/R. No JVD. ABDOMEN: Soft, non-tender and non-distended. No palpable masses. Bowel sounds normoactive x 4 quad. EXTREMITIES: No edema. Non-tender. Peripheral pulses +2/4. NEUROLOGIC: A&O x3. No focal neurological deficits. CN II-XII grossly intact. PSYCHIATRIC: Cooperative. Appropriate mood and affect. SKIN: Warm, dry, intact. No rashes or lesions. Discharge Plan Discharge Items Patient Disposition: Home - Self-Care Reason For Visit: NSTEMI Discharge Diagnosis: NSTEMI Condition on Discharge: Fair Activity: Per Instructions section Activity Comment: No vigorous use of the right hand or wrist for 5 days Lifting: No more than 10 pounds Lifting Comment: No straining or lifting greater than 10 pounds for 7 days Bathing: No limitations Non-emergency contact: Primary Care Provider Call non-emergency contact if: you have any medication questions Follow-up/Referrals: Carmela Booth [Primary Care Provider] - Diet: Heart Healthy Addtl Attending Provider Instructions: Please continue current medical regimen which includes aspirin, Plavix, metoprolol and atorvastatin. Please refrain from vigorous use of the right hand or wrist for another 5 days. Do not lift anything over 10 pounds or perform any straining for another 7 days. The gasoline service attendant will schedule a followup. Please followup with your PCP in 1-2 weeks. Do no skip plavix and or aspirin as these medications will help keep your stents open. Pending Studies at Discharge: No Stand-Alone Forms: [employer], Smoking Cessation Medications and DC Order Prescriptions: New atorvastatin 40 mg Tablet 40 mg PO QAM Qty: 30 0RF clopidogrel 75 mg Tablet 75 mg PO QAM Qty: 30 0RF metoprolol succinate 25 mg tablet extended release 24 hr 25 mg PO PM Qty: 30 0RF nitroglycerin [Nitrostat] 0.4 mg Tablet, Sublingual 0.4 mg sublingual Q5M PRN (Reason: chest pain) Qty: 7 0RF aspirin 81 mg capsule 81 mg PO DAILY Qty: 30 0RF Continued mecobalamin (vitamin B12) 5,000 mcg tablet,chewable 5,000 mcg PO DAILY aspirin 81 mg tablet,delayed release (DR/EC) 81 mg PO DAILY PRN (Reason: Pain) cholecalciferol (vitamin D3) [Vitamin D3] 50 mcg (2,000 unit) Tablet 50 mcg PO QAM PreserVision AREDS-2 [id number] [id number] Capsule 1 tab PO BID tramadol 50 mg tablet 50 mg PO TID Discharge Orders: Discharge Order (Routine); Ordered 01/26/24 Ordered By: Pito Lawson/Other Patient Handouts: Heart Attack Angina Sx, Nitroglycerin Fast Acting Dc, Discharge Instructions for Angina Admission Data Admit Date/Time: 01/23/24 13:48 Attending Provider: Pito Bonilla Admit Provider: William Lcuero Primary Care Provider: Carmela Booth Other Providers: William Lucero; Toro Fontanez Other Interventions: Discharge Summary Assessment (RN) Last Done: 01/26/24 12:27 Hospital Stay Data Consultations 01/23/24 13:21 ED Decision to Admit Stat 01/23/24 16:22 Consult Cardiology Routine 01/25/24 10:28 Consult Cardiac Rehabilitation Routine Procedures Performed Operation Date: 01/25/24 09:30 Actual Procedures p Cineradiography w/Routine Exam - Aung Monroy MD, PhD p Drug Eluting Stent SGl Vessel - Aung Monroy MD, PhD p Coronary Lithotripsy - Aung Monroy MD, PhD Diagnostic Imagining Performed 01/23/24 16:14 CT angio chest PE protocol Urgent 01/24/24 10:42 CL Cath Imgs for PACS use only Stat 01/25/24 07:13 CL Cath Imgs for PACS use only Routine Pending Results Patient Have Any Pending Studies at Discharge: No Discharge Instructions Given to Patient (Per Discharging Provider) Please continue current medical regimen which includes aspirin, Plavix, metoprolol and atorvastatin. Please refrain from vigorous use of the right hand or wrist for another 5 days. Do not lift anything over 10 pounds or perform any straining for another 7 days. The gasoline service attendant will schedule a followup. Please followup with your PCP in 1-2 weeks. Do no skip plavix and or aspirin as these medications will help keep your stents open. Total Time Total Time Spent Total Time Spent (In Minutes): 32 Coding Level of Care Code 58464 INP/OBS DISCH >30 MIN Diagnoses Non-ST elevation (NSTEMI) myocardial infarction I21.4 Osteoarthritis of left knee M17.12 Lumbar spinal stenosis M48.061
== END 2024-01-26 16:10 | disposition home or self-care (01) | DRG 324 ==
LOC: ED 09:47 → SUATTDRO 13:48 → 4W 13:48
PROC: CLB.CCO (2024-01-25 09:30)